=== PATIENT | female | born 1965 | race Caucasian/White ===

== ENCOUNTER 2017-04-18 13:33 | Emergency (ER) | payer BC, SELFPAY ==
[2017-04-18 14:03] LABS: Bilirubin Negative (Negative); Blood, Urine Negative (Negative); Clarity CLEAR (Clear); Glucose, Urine (Dipstick) >=1000 mg/dL (Negative); Leukocyte Negative (Negative); Nitrite Negative (Negative); Protein, Urine (Dipstick) Negative (Neg-Trace); Specific Gravity, Urine 1.028 (1.002-1.036); Urobilinogen 0.2 mg/dL (0.2-1.0); pH, Urine 5.5 (5.0-9.0)
[2017-04-18 14:03] LABS: #Basophils 0.1 thou/uL (0.0-0.2); #Eosinphils 0.2 thou/uL (0.0-0.7); #Lymphocytes 2.6 thou/uL (1.20-3.40); #Monocytes 0.6 thou/uL (0.11-0.59); #Neutrophils 7.5 thou/uL (1.40-6.50); %Basophils 0.7 % (0.0-1.0); %Eosinophils 1.9 % (0.0-10.0); %Lymphocytes 23.9 % (21.0-51.0); %Monocytes 5.7 % (0.0-10.0); %Neutrophils 67.8 % (42.0-75.0); Hemoglobin 13.1 g/dL (12.0-16.0); Mean Corpuscular HGB CONC 32.4 g/dL (32.0-36.0); Mean Corpuscular Hemoglobin 28.5 pg (27.0-31.0); Mean Corpuscular Volume 88.1 fl (81.0-99.0); Mean Platelet Volume 7.3 fL (7.4-10.4); Platelet Count 429 thou/uL (130-400)
[2017-04-18 14:21] LABS: Base Excess-Venous -0.1 mmol/L (-30.0-30.0); Bicarbonate (HCO3v) 27.3 mmol/L (1.0-85.0); CO2 Tension (PvCO2) 53.7 mmHg (41.0-51.0); Calcium, Ionized 1.04 mmol/L (1.12-1.32); Hemoglobin - Calc 16.2 g/dL (12.0-18.0); O2 Tension (PvO2) 22.3 mmHg (35.0-45.0); Potassium 3.8 mmol/L (3.4-4.7); T. Carbon Dioxide 28.9 mmol/L (1.0-85.0); pH (Venous) 7.314 (7.35-7.45); vO2 Saturation-calc 32.3 % (0.0-100.0)
[2017-04-18 14:29] LABS: ALT (SGPT) 11 U/L (8-55); AST (SGOT) 8 U/L (5-34); Albumin 4.4 g/dL (3.5-5.0); Alkaline Phosphatase 166 U/L (40-150); Anion Gap 16 mmol/L (10-20); BUN (Urea Nitrogen) 28 mg/dL (7.0-18.7); Bilirubin, Total 0.3 mg/dL (0.2-1.2); Calc. Creatinine Clearance 0 mL/min (70-130); Carbon Dioxide 26 mmol/L (22-29); Chloride 94 mmol/L (98-107); Estimated GFR-MDRD 40; Globulin 3.7 g/dL (2.4-3.5); Glucose 392 mg/dL (70-105); Potassium 3.8 mmol/L (3.5-5.1); Protein, Total 8.1 g/dL (6.0-8.3); Sodium 132 mmol/L (136-145); Troponin I Less than 0.010 ng/mL (< 0.028)
[2017-04-18] MEDS ORDERED: Insulin Regular 300 UNITS/3 ML VIAL ONE (15:01)
== END 2017-04-18 15:33 | disposition home or self-care (01) ==
LOC: ERS 13:33
DX: E10.65 Type 1 diabetes mellitus with hyperglycemia (principal); I25.10 Atherosclerotic heart disease of native coronary artery without angina pectoris; E10.40 Type 1 diabetes mellitus with diabetic neuropathy, unspecified; F32.9 Major depressive disorder, single episode, unspecified; Z79.899 Other long term (current) drug therapy; Z79.84 Long term (current) use of oral hypoglycemic drugs
CPT/HCPCS: 36415; 36416; 80053; 81003; 82010; 82330; 82553; 82803; 84484; 85025; 96372; J1815

== ENCOUNTER 2017-10-17 12:49 | Outpatient (CLI) | payer BC | END 2017-10-17 12:50 | disposition home or self-care (01) | LOC: BICMAMMO 12:49 | PROVIDERS: ATTEND Student in an Organized Health Care Education/Training Program | DX: Z12.31 Encounter for screening mammogram for malignant neoplasm of breast (principal); Z80.3 Family history of malignant neoplasm of breast | CPT/HCPCS: 77063; 77067 ==

== ENCOUNTER 2018-03-25 20:03 | Emergency (ER) | payer BC ==
--- NOTE | 2018-03-25 20:53 | RAD ---
CHEST TWO VIEWS: 03/25/2018 PROVIDED CLINICAL HISTORY: Cough and congestion. COMPARISON: 11/24/2014 FINDINGS: The cardiac and mediastinal silhouette is within normal limits. Median sternotomy changes are seen. No focal consolidation, pleural fluid, or pneumothorax apparent. IMPRESSION: No evidence for acute cardiopulmonary process. POS: YENIFER
== END 2018-03-25 21:18 | disposition home or self-care (01) ==
LOC: ERS 20:03
DX: J06.9 Acute upper respiratory infection, unspecified (principal); I25.10 Atherosclerotic heart disease of native coronary artery without angina pectoris; E10.40 Type 1 diabetes mellitus with diabetic neuropathy, unspecified; I10 Essential (primary) hypertension; F32.9 Major depressive disorder, single episode, unspecified; Z79.899 Other long term (current) drug therapy; Z79.82 Long term (current) use of aspirin; Z79.4 Long term (current) use of insulin
CPT/HCPCS: 71046

== ENCOUNTER 2018-06-07 10:06 | Emergency (ER) | payer BC ==
[2018-06-07 10:39] LABS: Bilirubin Negative (Negative); Blood, Urine Negative (Negative); Glucose, Urine (Dipstick) 500 mg/dL (Negative); Leukocyte Negative (Negative); Nitrite Negative (Negative); Protein, Urine (Dipstick) Negative (Neg-Trace); Urobilinogen 0.2 mg/dL (0.2-1.0); pH, Urine 6.5 (5.0-9.0)
[2018-06-07 10:41] LABS: Clarity Clear (Clear)
[2018-06-07 11:15] LABS: #Basophils 0.1 thou/uL (0.0-0.2); #Eosinphils 0.2 thou/uL (0.0-0.7); #Lymphocytes 1.7 thou/uL (1.20-3.40); #Monocytes 0.5 thou/uL (0.11-0.59); #Neutrophils 5.6 thou/uL (1.40-6.50); %Basophils 0.8 % (0.0-1.0); %Eosinophils 2.4 % (0.0-10.0); %Lymphocytes 20.8 % (21.0-51.0); %Monocytes 5.9 % (0.0-10.0); %Neutrophils 70.1 % (42.0-75.0); Hemoglobin 12.6 g/dL (12.0-16.0); Mean Corpuscular HGB CONC 31.7 g/dL (32.0-36.0); Mean Corpuscular Hemoglobin 28.1 pg (27.0-31.0); Mean Corpuscular Volume 88.5 fL (78.0-98.0); Mean Platelet Volume 7.7 fL (7.4-10.4); Platelet Count 338 thou/uL (130-400); RBC Distribution Width 13.5 % (11.5-14.5)
[2018-06-07 12:19] LABS: ALT (SGPT) 17 U/L (8-55); AST (SGOT) 14 U/L (5-34); Albumin 3.8 g/dL (3.5-5.0); Alkaline Phosphatase 146 U/L (40-150); Anion Gap 12 mmol/L (10-20); BUN (Urea Nitrogen) 22 mg/dL (9.8-20.1); Bilirubin, Total 0.3 mg/dL (0.2-1.2); Calc. Creatinine Clearance 0 mL/min (70-130); Calcium 9.5 mg/dL (7.8-10.44); Carbon Dioxide 28 mmol/L (22-29); Chloride 102 mmol/L (98-107); Estimated GFR-MDRD 71; Globulin 3.1 g/dL (2.4-3.5); Glucose 222 mg/dL (70-105); Potassium 4.2 mmol/L (3.5-5.1); Protein, Total 6.9 g/dL (6.0-8.3); Sodium 138 mmol/L (136-145)
== END 2018-06-07 13:07 | disposition home or self-care (01) ==
LOC: ERS 10:06
DX: E10.65 Type 1 diabetes mellitus with hyperglycemia (principal); I25.10 Atherosclerotic heart disease of native coronary artery without angina pectoris; E10.40 Type 1 diabetes mellitus with diabetic neuropathy, unspecified; I10 Essential (primary) hypertension; F32.9 Major depressive disorder, single episode, unspecified; F17.210 Nicotine dependence, cigarettes, uncomplicated
CPT/HCPCS: 36416; 80053; 81003; 82010; 85025; 93005; 96360; 96361

== ENCOUNTER 2018-11-07 08:56 | Outpatient (CLI) | payer BC ==
--- NOTE | 2018-11-07 09:37 | MMO ---
Right Breast MAMMO Unilat Diag DDI RT+BLAKE. CLINICAL HISTORY: Patient is 53 years old and is seen for additional evaluation requested from prior study. The patient has no personal history of cancer. VIEWS: The views performed were: right craniocaudal spot compression with tomosynthesis; right mediolateral oblique spot compression with tomosynthesis; and right mediolateral with tomosynthesis. FILMS COMPARED: The present examination has been compared to prior imaging studies performed at [facility] on 10/29/2018, and at [facility] on 08/15/2016, 10/17/2017 and 11/07/2018. MAMMOGRAM FINDINGS: There are scattered fibroglandular densities. There is a low density, oval mass measuring 8 millimeters with obscured margins seen in the middle central region of the right breast. This may reflect an intramammary lymph node. No sonographic correlate is evident. IMPRESSION: MASS IN THE RIGHT BREAST IS PROBABLY BENIGN. FOLLOW-UP IN 6 MONTHS IS RECOMMENDED. THE RESULTS OF THIS EXAM WERE SENT TO THE PATIENT. ACR BI-RADS Category 3 - Probably benign finding - short interval follow-up suggested. [facility] will notify the patient of the need for additional imaging services. MAMMOGRAPHY NOTE: 1. A negative mammogram report should not delay a biopsy if a dominant of clinically suspicious mass is present. 2. Approximately 10% to 15% of breast cancers are not detected by mammography. 3. Adenosis and dense breasts may obscure an underlying neoplasm. Reported by: BRADEN TORRES MD Electonically Signed: [id number]
--- NOTE | 2018-11-07 09:52 | ULT ---
LIMITED RIGHT BREAST ULTRASOUND: 11/07/2018 PROVIDED CLINICAL HISTORY: Abnormal mammogram. FINDINGS: Limited sonographic interrogation of the right breast was performed in the region of mammographic con cern. No corresponding sonographic abnormality is evident. IMPRESSION: BI-RADS category 3-Probably benign findings. Six month follow-up diagnostic right mammogram is recom mended for findings seen only by mammography. Please see that report. POS: OFF
== END 2018-11-07 08:57 | disposition home or self-care (01) ==
LOC: BICMAMMO 08:56
PROVIDERS: ATTEND Student in an Organized Health Care Education/Training Program
DX: N63.10 Unspecified lump in the right breast, unspecified quadrant (principal)
CPT/HCPCS: G0279

== ENCOUNTER 2019-12-02 22:09 | Inpatient (IN) | payer BC, OTHER ==
[2019-12-02 22:50] LABS: #Basophils 0.1 thou/uL (0.0-0.2); #Eosinphils 0.2 thou/uL (0.0-0.7); #Lymphocytes 1.7 thou/uL (1.20-3.40); #Monocytes 0.7 thou/uL (0.11-0.59); #Neutrophils 8.2 thou/uL (1.40-6.50); %Eosinophils 1.8 % (0.0-10.0); %Lymphocytes 15.7 % (21.0-51.0); %Monocytes 5.9 % (0.0-10.0); %Neutrophils 75.6 % (42.0-75.0); Hemoglobin 12.8 g/dL (12.0-16.0); Mean Corpuscular HGB CONC 31.7 g/dL (32.0-36.0); Mean Corpuscular Hemoglobin 29.2 pg (27.0-31.0); Mean Corpuscular Volume 91.9 fL (78.0-98.0); Mean Platelet Volume 8.4 fL (7.4-10.4); Platelet Count 330 thou/uL (130-400); RBC Distribution Width 12.9 % (11.5-14.5); Red Blood Cell (RBC) Count 4.37 mill/uL (4.20-5.40); White Blood Cell (WBC) Count 10.9 thou/uL (4.8-10.8)
[2019-12-02 22:55] LABS: Bilirubin Negative (Negative); Blood, Urine Negative (Negative); Clarity Clear (Clear); Glucose, Urine (Dipstick) Greater than 1000 mg/dL (Negative); Ketone, Urine 40 mg/dL (Negative); Leukocyte Negative Leu/uL (Negative); Nitrite Negative (Negative); Protein, Urine (Dipstick) Negative (Neg-Trace); Specific Gravity, Urine 1.025 (1.002-1.036); Urobilinogen Normal mg/dL (Less than 2)
[2019-12-02 23:09] LABS: ALT (SGPT) 16 U/L (8-55); AST (SGOT) 12 U/L (5-34); Albumin 4.2 g/dL (3.5-5.0); Alkaline Phosphatase 142 U/L (40-110); Anion Gap 21 mmol/L (10-20); BUN (Urea Nitrogen) 29 mg/dL (9.8-20.1); Bilirubin, Total 0.5 mg/dL (0.2-1.2); Calc. Creatinine Clearance 0 mL/min (70-130); Carbon Dioxide 16 mmol/L (22-29); Chloride 97 mmol/L (98-107); Estimated GFR-MDRD 34; Potassium 4.2 mmol/L (3.5-5.1); Protein, Total 7.2 g/dL (6.0-8.3); Sodium 130 mmol/L (136-145)
[2019-12-02 23:11] LABS: Actual Bicarbonate (HCO3v) 17 mEq/L (22-28); Analyzer IN Cardio ER; Base Excess -9.2 mEq/L (-2.0 to +3.0); Calcium, Ionized (venous) 1.17 mmol/L (1.16-1.32); Chloride (ABG LAB) 98 mmol/L (98-106); Hemoglobin (Hb) 12.2 g/dL (11.7-16.0); Potassium - ABG Lab 4.12 mmol/L (3.70-5.30); Sodium 132.3 mmol/L (133-146); pH (venous) 7.28 (7.32-7.43)
[2019-12-02 23:14] LABS: Glucose 621 mg/dL (70-105)
[2019-12-02] MEDS ORDERED: INSULIN REGULAR IN 0.9 % NACL 100 UNIT/100 ML BAG ONE (23:39)
[2019-12-03] MEDS ORDERED: Dextrose 5 %-0.45 % NaCl 1,000 ML IV PRN (01:23)
[2019-12-03] MEDS ORDERED: Sodium Chloride 0.9% 1,000 ML IV PRN ×4 (01:23)
[2019-12-03] MEDS ORDERED: NS 0.9% w/ 20 MEQ KCL 1,000 ML IV PRN ×2 (01:23)
[2019-12-03] MEDS ORDERED: Labetalol HCl 100 MG/20 ML VIAL SLOW IVP PRN (01:23)
[2019-12-03] MEDS ORDERED: Ondansetron PF 4 MG/2 ML Vial IVP PRN (01:23)
[2019-12-03] MEDS ORDERED: Acetaminophen 500 MG TAB PO PRN (01:23)
[2019-12-03] MEDS ORDERED: Electrolyte Replacement Protoc 1 EACH EACH IVPB PRN (01:23)
[2019-12-03] MEDS ORDERED: Ondansetron ODT 4 MG TAB PO PRN (01:23)
[2019-12-03 01:27] VITALS: BMI 36.5
[2019-12-03] MEDS ORDERED: HUMULIN R 100 UNITS in Sodium Chloride 0.9% 100 ML IVPB SCH (01:30)
[2019-12-03 02:00] LABS: Anion Gap 13 mmol/L (10-20); BUN (Urea Nitrogen) 25 mg/dL (9.8-20.1); Calc. Creatinine Clearance 89 mL/min (70-130); Calcium 8.3 mg/dL (7.8-10.44); Carbon Dioxide 21 mmol/L (22-29); Chloride 105 mmol/L (98-107); Estimated GFR-MDRD 49; Glucose 277 mg/dL (70-105); Potassium 3.9 mmol/L (3.5-5.1); Sodium 135 mmol/L (136-145)
[2019-12-03] MEDS ORDERED: Hydrocortisone 1% Cream 30 GM TUBE TOP SCH ×2 (02:00→09:00)
[2019-12-03] MEDS: D5 1/2 NS w/20 mEq KCL 1,000 ML IV PRN ×2 (02:18→05:57)
--- NOTE | 2019-12-03 02:30 | HP ---
PRIMARY CARE PROVIDER: Hitlon Honeycutt MD PRIMARY GRAIN OILSEED OR PASTURE GROWER: Dr. Radha Stinson. CHIEF COMPLAINT: Headache and hyperglycemia. HISTORY OF PRESENT ILLNESS: This is a 54-year-old female with a significant history of type 1 diabetes mellitus, presenting with hyperglycemia in the context of a broken insulin pump which occurred approximately 2 days prior to this evaluation. The patient states she has used an insulin pump over 19 years with the most recent one malfunctioning 48 hours prior to this evaluation. The patient attempted to use subcutaneous short-acting insulin to control her glucose that was unsuccessful after approximately 24 hours. The patient exhibited some nausea, but no emesis or diarrhea. The patient states she has had issues with diabetic ketoacidosis in the past, that has been approximately 5 years since her last episode. The patient denied any documented fever, chills, exposure history, or travel. The patient states she has no family members that have been ill, and no COVID-19 exposure. The patient states she is typically very compliant and vigilant with monitoring her glucose. In the emergency room, the patient underwent evaluation with metabolic screening showing elevated beta-hydroxybutyrate level of 3.26 and glucose of 600. Venous blood gas showed a pH of 7.28, at which point the patient was diagnosed with diabetic ketoacidosis and initiated on insulin infusion. The patient also received 2 L of normal saline per protocol and transferred to the intermediate care unit for further evaluation. PAST MEDICAL HISTORY: 1. Diabetes mellitus type 1 with history of intermittent DKA. 2. Coronary artery disease. 3. Diabetic peripheral neuropathy. 4. Hypertension. 5. Diabetic retinopathy. 6. Hypothyroidism. PAST SURGICAL HISTORY: 1. Status post coronary artery bypass grafting. 2. Status post bladder suspension. 3. Status post repair of deviated nasal septum. 4. Status post section. 5. Status post hysterectomy. 6. Status post tonsillectomy. 7. Bilateral tubal ligation. CURRENT MEDICATIONS: 1. Aspirin 325 mg p.o. daily. 2. Carvedilol 6.25 mg p.o. b.i.d. 3. Gabapentin 300 mg p.o. t.i.d. 4. Diclofenac 100 mg p.o. daily. 5. Hydrochlorothiazide 25 mg p.o. daily. 6. Metformin 1000 mg p.o. b.i.d. 7. NovoLog insulin per insulin pump. 8. Paroxetine 40 mg p.o. daily. 9. Simvastatin 40 mg p.o. at bedtime. 10. Levothyroxine 75 mcg p.o. daily. 11. Vitamin D3 4000 units p.o. daily. 12. Zyban 150 mg p.o. b.i.d. ALLERGIES: NO KNOWN DRUG ALLERGIES. FAMILY HISTORY: Positive for hypertension and diabetes mellitus. SOCIAL HISTORY: Resides in [place], [place]. Works as a retail security professional. Occasional alcohol use. Smokes up to 3 cigarettes every other day. No illicit drug use. REVIEW OF SYSTEMS: CONSTITUTIONAL: Negative for weight loss or gain, ability to conduct usual activities. SKIN: Negative for rash, itching. EYES: Negative for double vision, pain. ENT/MOUTH: Negative for nose bleeding, neck stiffness, pain, tenderness. CARDIOVASCULAR: Negative for palpitations, dyspnea on exertion, orthopnea. RESPIRATORY: Negative for shortness of breath, wheezing, cough, hemoptysis, fever or night sweats. GASTROINTESTINAL: Negative for poor appetite, abdominal pain, heartburn, nausea, vomiting, constipation, or diarrhea. GENITOURINARY: Negative for urgency, frequency, dysuria, nocturia. MUSCULOSKELETAL: Negative for pain, swelling. NEUROLOGIC/PSYCHIATRIC: Negative for anxiety, depression. ALLERGY/IMMUNOLOGIC: Negative for skin rash, bleeding tendency. Otherwise negative except as stated per HPI. PHYSICAL EXAMINATION: VITAL SIGNS: On admission, blood pressure 143/83, pulse 101, respiratory rate 18, temperature 98.3 degrees Fahrenheit, O2 saturation 98% on room air. GENERAL APPEARANCE: This is a 54-year-old female, alert and oriented x3, pleasant, responsive, in no acute distress. HEENT: Pupils are equal, round, reactive to light and accommodation. Extraocular muscles are intact. No scleral icterus. No conjunctival injection. Nares patent. OP is clear. Oral mucosa dry. NECK: Supple. No cervical adenopathy. No thyromegaly. No carotid bruits. No JVD appreciated. Cervical spine with full active and passive range of motion. No meningeal signs noted. CHEST: Lungs are clear to auscultation bilaterally. CARDIOVASCULAR: S1 and S2 without noted murmur, rub, or gallop. ABDOMEN: Obese, soft, nontender, and nondistended. Bowel sounds are positive in all 4 quadrants. There is no palpable mass. No rebound or guarding appreciated. Insulin pump noted in the right lower quadrant. EXTREMITIES: Warm and dry with fair turgor. No clubbing, cyanosis, or asymmetric edema appreciated. Pulses palpable distally at the dorsalis pedis, posterior tibial, and popliteal arteries bilaterally. Capillary refill less than 2 seconds. NEUROLOGIC: Cranial nerves II through XII are grossly intact. No focal or lateralizing signs appreciated. PERTINENT LABORATORY AND X-RAY FINDINGS: Sodium 130, potassium 4.2, chloride 97, CO2 of 16, anion gap 21, BUN 29, creatinine 1.57, estimated GFR 34, glucose 621, calcium 9.0. CBC showed a white blood cell count of 10.9, hemoglobin 12.8, hematocrit 40.2, MCV 92, platelet count 330 with 76% neutrophils. Venous blood gas dated 12/02/2019 showed a pH of 7.28. Urinalysis positive for glucose and ketones. Beta-hydroxybutyrate level 3.26. ASSESSMENT AND PLAN: 1. Diabetic ketoacidosis. The patient will be admitted to the intermediate care unit. We will continue diabetic ketoacidosis protocol with attention to IV fluid resuscitation. Continue insulin infusion and monitor Accu-Cheks q.1 hour. No current evidence to suggest focal infectious process. Repeat beta-hydroxybutyrate level in the a.m. 2. Acute kidney injury. Continue IV fluids as outlined previously. Avoid nephrotoxic agents and limit contrast exposure. Repeat creatinine in the a.m. 3. Hyponatremia. Secondarily to hyperglycemia. We will continue IV fluids with normal saline and serial sodium monitoring. 4. Hypertension. Resume home blood pressure regimen and monitor clinical response. 5. Hypothyroidism. Continue levothyroxine 75 mcg p.o. daily. 6. Prophylaxis. SCDs while in bed. Pepcid 20 mg p.o. b.i.d. CODE STATUS: Full. Surrogate medical decision maker is the patient's son. Job ID: [id number]
[2019-12-03 02:31] LABS: Hemoglobin 11.5 g/dL (12.0-16.0); Mean Corpuscular HGB CONC 32.8 g/dL (32.0-36.0); Mean Corpuscular Hemoglobin 29.1 pg (27.0-31.0); Mean Corpuscular Volume 88.8 fL (78.0-98.0); Mean Platelet Volume 8.1 fL (7.4-10.4); Platelet Count 294 thou/uL (130-400); RBC Distribution Width 12.7 % (11.5-14.5); Red Blood Cell (RBC) Count 3.94 mill/uL (4.20-5.40); White Blood Cell (WBC) Count 8.7 thou/uL (4.8-10.8)
[2019-12-03 06:29] LABS: Anion Gap 12 mmol/L (10-20); BUN (Urea Nitrogen) 20 mg/dL (9.8-20.1); Calc. Creatinine Clearance 104 mL/min (70-130); Calcium 8.3 mg/dL (7.8-10.44); Carbon Dioxide 23 mmol/L (22-29); Chloride 108 mmol/L (98-107); Estimated GFR-MDRD 59; Glucose 158 mg/dL (70-105); Potassium 4.2 mmol/L (3.5-5.1); Sodium 139 mmol/L (136-145)
[2019-12-03] MEDS ORDERED: diphenhydrAMINE 25 MG CAP PO PRN (08:52)
--- NOTE | 2019-12-03 08:53 | PDOC.HOSPP ---
- Subjective Encounter Date: 12/03/19 Encounter Time: 08:51 Subjective: Ms. Mcrae was seen today in follow-up of DKA. She does not have any complaints. - Objective Vital Signs & Weight: Vital Signs (12 hours) Temp Pulse Ox 12/03/19 07:42 97 12/03/19 07:27 97.8 F 12/03/19 04:00 98 F 12/03/19 01:10 98 12/03/19 01:00 97.8 F Weight Weight 219 lb 6 oz Most Recent Monitor Data Heart Rate from ECG 81 NIBP 139/71 NIBP BP-Mean 93 Respiration from ECG 19 SpO2 98 I&O: 12/02/19 12/03/19 12/04/19 06:59 06:59 06:59 Intake Total 1365 251.5 Output Total 1100 Balance 265 251.5 Result Diagrams: 12/03/19 01:34 12/03/19 05:54 Additional Labs: Accuchecks 12/03/19 12/03/19 12/03/19 08:07 07:09 05:59 POC Glucose 153 H 143 H 149 H 12/03/19 12/03/19 12/03/19 04:15 03:07 02:05 POC Glucose 190 H 209 H 213 H 12/03/19 12/03/19 01:06 00:03 POC Glucose 318 H 416 H - Exam Eye: PERRL, anicteric sclera Heart: RRR, no murmur, no gallops, no rubs, normal peripheral pulses Respiratory: CTAB, no wheezes, no rales, no ronchi, normal chest expansion, no tachypnea Gastrointestinal: soft, non-tender, non-distended, normal bowel sounds, no palpable masses, no hepatomegaly Extremities: no cyanosis, no clubbing, no edema (+ mild erythema on the medial aspect of the thigh, withsome small vesicular areas) Hosp A/P (1) DKA, type 1 Code(s): E10.10 - TYPE 1 DIABETES MELLITUS WITH KETOACIDOSIS WITHOUT COMA Status: Acute (2) Hypertension Code(s): I10 - ESSENTIAL (PRIMARY) HYPERTENSION Status: Chronic (3) CAD (coronary artery disease) Code(s): I25.10 - ATHSCL HEART DISEASE OF [place] CORONARY ARTERY W/O ANG PCTRS Status: Chronic (4) Hypothyroidism Code(s): E03.9 - HYPOTHYROIDISM, UNSPECIFIED Status: Chronic - Plan * DKA type 1- resolved- will transition her back to the insulin pump ( she has received a new one, and has it right now) * CAD- stable * Probable Allergic dermatitis- Benadryl and Hydrocortisone cream * HTN- will re-start her home medication * Hypothyroidism- re-start home medications * Hopefully home later today if her blood glucose is stable
[2019-12-03] MEDS ORDERED: Gabapentin 300 MG CAP PO SCH (09:00)
[2019-12-03] MEDS ORDERED: PARoxetine 20 MG TAB PO SCH (09:00)
[2019-12-03] MEDS ORDERED: Non-Formulary Item 1 EACH (Paroxetine Hcl [Paroxetine Hcl] 40 MG Tablet) PO SCH (09:00)
[2019-12-03] MEDS ORDERED: Dulaglutide [Trulicity] 1.5 MG/0.5 ML SC SCH (09:00)
[2019-12-03] MEDS ORDERED: Bupropion 150 MG SR TAB PO SCH (09:00)
[2019-12-03] MEDS ORDERED: Levothyroxine Sodium 75 MCG TAB PO SCH (09:00)
[2019-12-03] MEDS ORDERED: Aspirin 325 MG TAB PO SCH (09:00)
[2019-12-03] MEDS ORDERED: Non-Formulary Item 1 EACH (Dulaglutide [Trulicity] 1.5 MG/0.5 ML Pen.Injctr) SC SCH (09:00)
[2019-12-03] MEDS ORDERED: Famotidine 20 MG TAB PO SCH (09:00)
[2019-12-03] MEDS ORDERED: Cholecalciferol 1,000 UNITS (25 MCG) TAB PO SCH (09:00)
[2019-12-03] MEDS ORDERED: Carvedilol 6.25 MG TAB PO SCH (09:00)
[2019-12-03 15:06] LABS: SARS-CoV-2 MS2 Positive; SARS-CoV-2 N Gene Negative; SARS-CoV-2 S Gene Negative; SARS-CoV-2 by NAA Not Detected (NotDetected); SARS-CoV-2 orf1ab Negative
[2019-12-03 15:34] VITALS: TEMP 98.2
[2019-12-03] MEDS ORDERED: metFORMIN 500 MG TAB PO SCH (17:00)
[2019-12-03] MEDS ORDERED: Simvastatin 40 MG TAB PO SCH (21:00)
--- NOTE | 2019-12-04 02:25 | DIS ---
DATE OF ADMISSION: 12/02/2019 DATE OF DISCHARGE: 12/03/2019 DISCHARGE DISPOSITION: Home. DISCHARGE DIAGNOSES: 1. Diabetic ketoacidosis. 2. Hypertension. 3. Diabetic peripheral neuropathy. 4. Hypertension. 5. Diabetic retinopathy. 6. Hypothyroidism. DISCHARGE MEDICATIONS: Include 1. She is to continue her insulin pump. 2. Bupropion 150 mg extended release b.i.d. 3. Lisinopril 20 mg p.o. daily. 4. Vitamin D3 4000 units p.o. daily. 5. Trulicity 1.5 mg subcutaneously weekly. 6. Synthroid 75 mcg p.o. daily. 7. Simvastatin 40 mg p.o. at bedtime. 8. Paroxetine 40 mg p.o. daily. 9. Metformin 1000 mg p.o. b.i.d. 10. Hydrochlorothiazide 25 mg p.o. daily. 11. Gabapentin 300 mg p.o. t.i.d. 12. Diclofenac 100 mg extended release p.o. daily. 13. Carvedilol 6.25 mg p.o. twice a day. 14. Aspirin 325 mg p.o. daily. CODE STATUS: Full code. ALLERGIES: NO KNOWN DRUG ALLERGIES. HOSPITAL COURSE: Ms. Mcrae is a pleasant 54-year-old female, who presented to the emergency room after her insulin pump malfunctioned. She tried to correct her blood glucose with subcutaneous insulin, but unfortunately her blood sugar continued to rise. By the time she received a new pump, her blood sugars were already out of control in the 600 range. She was feeling ill and as a result, came to the ER for evaluation. She was found to be in diabetic ketoacidosis and was placed in the IMCU on an insulin drip as well as fluid resuscitation. She actually improved extremely quickly overnight much sooner than expected and was able to be transitioned off the insulin drip to subcutaneous insulin and was subsequently discharged home. Prior to being discharged, she had her new insulin pump in her possession. She was able to try a few hours on the insulin pump with self-correction prior to being discharged home. Job ID: [id number]
== END 2019-12-03 17:17 | disposition home or self-care (01) | DRG 919 ==
LOC: ERS 22:09 → IMCU/EMU 23:50
PROVIDERS: ADMIT Family Medicine; ATTEND Family Medicine
DX: T85.614A Breakdown (mechanical) of insulin pump, initial encounter (principal); E10.10 Type 1 diabetes mellitus with ketoacidosis without coma; N17.9 Acute kidney failure, unspecified; E87.1 Hypo-osmolality and hyponatremia; I25.10 Atherosclerotic heart disease of native coronary artery without angina pectoris; E10.42 Type 1 diabetes mellitus with diabetic polyneuropathy; I10 Essential (primary) hypertension; E10.319 Type 1 diabetes mellitus with unspecified diabetic retinopathy without macular edema; Y83.8 Other surgical procedures as the cause of abnormal reaction of the patient, or of later complication, without mention of misadventure at the time of the procedure; E03.9 Hypothyroidism, unspecified; Z95.1 Presence of aortocoronary bypass graft; Z90.710 Acquired absence of both cervix and uterus; Z98.51 Tubal ligation status; Z79.82 Long term (current) use of aspirin; Z79.4 Long term (current) use of insulin; Z79.890 Hormone replacement therapy; Z79.899 Other long term (current) drug therapy
CPT/HCPCS: 36415; 36416; 80048; 80053; 81003; 82010; 82805; 85025; 85027; 87635; 96361; 96374; J3480; U0003

== ENCOUNTER 2020-01-25 12:22 | Emergency (ER) | payer BC ==
--- NOTE | 2020-01-25 13:44 | RAD ---
EXAM: Chest one view: HISTORY: Cough with chest pressure and headache and diarrhea COMPARISON: 11/24/2014 FINDINGS: Heart size: Within normal limits. Lungs: Clear of acute process. No evidence for confluent lobar pneumonia, significant pleural effusion, acute edema, or pneumothorax , or other significant acute process. IMPRESSION: No significant acute intrathoracic disease. Stable exam.
[2020-01-25 17:01] LABS: SARS-CoV-2 MS2 Positive; SARS-CoV-2 N Gene Negative; SARS-CoV-2 S Gene Negative; SARS-CoV-2 by NAA Not Detected (NotDetected); SARS-CoV-2 orf1ab Negative
== END 2020-01-25 14:13 | disposition home or self-care (01) ==
LOC: ERS 12:22
DX: R19.7 Diarrhea, unspecified (principal); R51.9 Headache, unspecified; R11.0 Nausea; R05 Cough; Z20.828 Contact with and (suspected) exposure to other viral communicable diseases; E10.40 Type 1 diabetes mellitus with diabetic neuropathy, unspecified; E10.319 Type 1 diabetes mellitus with unspecified diabetic retinopathy without macular edema; I10 Essential (primary) hypertension; I25.10 Atherosclerotic heart disease of native coronary artery without angina pectoris; F32.9 Major depressive disorder, single episode, unspecified; Z87.891 Personal history of nicotine dependence; Z79.84 Long term (current) use of oral hypoglycemic drugs; Z79.899 Other long term (current) drug therapy; Z79.82 Long term (current) use of aspirin
CPT/HCPCS: 71045; 87635; 87804; 93005; U0003

== ENCOUNTER 2020-05-23 06:55 | Observation (INO) | payer BC, SELFPAY ==
[2020-05-23 07:32] LABS: #Basophils 0.1 thou/uL (0.0-0.2); #Eosinphils 0.3 thou/uL (0.0-0.7); #Lymphocytes 2.1 thou/uL (1.20-3.40); #Monocytes 0.7 thou/uL (0.11-0.59); #Neutrophils 10.3 thou/uL (1.40-6.50); %Basophils 0.6 % (0.0-1.0); %Eosinophils 2.2 % (0.0-10.0); %Lymphocytes 15.7 % (21.0-51.0); %Monocytes 5.3 % (0.0-10.0); %Neutrophils 76.3 % (42.0-75.0); Hemoglobin 12.5 g/dL (12.0-16.0); Mean Corpuscular HGB CONC 31.4 g/dL (32.0-36.0); Mean Corpuscular Volume 89.3 fL (78.0-98.0); Mean Platelet Volume 7.7 fL (7.4-10.4); Platelet Count 376 thou/uL (130-400); RBC Distribution Width 12.6 % (11.5-14.5); Red Blood Cell (RBC) Count 4.45 mill/uL (4.20-5.40); White Blood Cell (WBC) Count 13.5 thou/uL (4.8-10.8)
[2020-05-23 07:57] LABS: Acetaminophen Less than 6.0 mcg/mL (10.0-30.0); Alcohol Less than 10 mg/dL (Less than 10); Salicylate Less than 8.0 mg/dL (15.0-30.0)
[2020-05-23 07:58] LABS: ALT (SGPT) 16 U/L (8-55); AST (SGOT) 19 U/L (5-34); Albumin 4.2 g/dL (3.5-5.0); Alkaline Phosphatase 151 U/L (40-110); Anion Gap 18 mmol/L (10-20); BUN (Urea Nitrogen) 20 mg/dL (9.8-20.1); Bilirubin, Total 0.2 mg/dL (0.2-1.2); Calc. Creatinine Clearance 0 mL/min (70-130); Carbon Dioxide 21 mmol/L (22-29); Chloride 106 mmol/L (98-107); Globulin 2.7 g/dL (2.4-3.5); Glucose 143 mg/dL (70-105); Magnesium 1.8 mg/dL (1.6-2.6); Potassium 4.5 mmol/L (3.5-5.1); Protein, Total 6.9 g/dL (6.0-8.3); Sodium 140 mmol/L (136-145)
[2020-05-23 08:03] LABS: Actual Bicarbonate (HCO3v) 21 mEq/L (22-28); Analyzer IN Cardio ER; Base Excess -4.3 mEq/L (-2.0 to +3.0); Calcium, Ionized (venous) 1.08 mmol/L (1.16-1.32); Chloride (VBG) 106 mmol/L (98-106); Hemoglobin (Hb) 14.1 g/dL (11.7-16.0); Potassium (VBG) 4.69 mmol/L (3.70-5.30); Sodium 136.4 mmol/L (133-146); pH (venous) 7.33 (7.32-7.43)
[2020-05-23] MEDS ORDERED: cefTRIAXone\\ROCEPHIN 1 GM VIAL ONE (08:07)
[2020-05-23 08:41] LABS: Bilirubin Negative (Negative); Blood, Urine Negative (Negative); Clarity Clear (Clear); Glucose, Urine (Dipstick) 100 mg/dL (Negative); Ketone, Urine Negative (Negative); Leukocyte Negative Leu/uL (Negative); Nitrite Negative (Negative); Protein, Urine (Dipstick) Negative (Neg-Trace); Specific Gravity, Urine 1.018 (1.002-1.036); Urobilinogen Normal mg/dL (Less than 2)
[2020-05-23 09:37] LABS: Amphetamine Not Detected (NotDetected); Benzodiazepine Screen Not Detected (NotDetected); Cocaine Metabolite Screen Not Detected (NotDetected); Medtox Reader # READER 1; Methamphetamine Not Detected (NotDetected); Opiate Screen Not Detected (NotDetected); Phencyclidine (PCP) Not Detected (NotDetected); THC/Cannabinoid Screen Not Detected (NotDetected)
[2020-05-23 09:38] LABS: Barbiturates Screen Not Detected (NotDetected); Medtox Control Line Valid? VALID (VALID); Methadone Not Detected (NotDetected); Oxycodone Screen Not Detected (NotDetected); Tricyclic Screen Not Detected (NotDetected)
[2020-05-23] MEDS ORDERED: Acetaminophen 325 MG TAB PO PRN (09:54)
[2020-05-23] MEDS ORDERED: Acetaminophen 650 MG Suppository PR PRN (09:54)
[2020-05-23] MEDS ORDERED: Vancomycin HCl 1.75 GM in Sodium Chloride 0.9% 500 ML IVPB SCH (10:30)
[2020-05-23 10:52] LABS: Lactic Acid 1.9 mmol/L (0.5-2.2)
[2020-05-23 10:54] LABS: SARS-CoV-2 NAA Rapid Test Not Detected (NotDetected)
[2020-05-23] MEDS ORDERED: VANCOMYCIN 1.75 GM/350 ML BAG 1.75 GM in Premix Bag 1 BAG IVPB SCH (11:15)
[2020-05-23 11:27] LABS: Troponin I Less than 0.010 ng/mL (< 0.028)
[2020-05-23] MEDS: Cefepime 2 GM in Sodium Chloride 0.9% 100 ML IVPB SCH ×2 (12:49→23:06)
[2020-05-23] MEDS: Sodium Chloride 0.9% 1,000 ML IV SCH ×2 (12:56→20:46)
[2020-05-23 13:47] VITALS: BMI 35.2
[2020-05-23] MEDS ORDERED: Dextrose 5% in Water 1,000 ML IV PRN (14:28)
[2020-05-23] MEDS ORDERED: HumaLOG 300 UNITS/3 ML VIAL SC PRN ×2 (14:28)
[2020-05-23] MEDS ORDERED: Dextrose 50% Abboject 50 ML SYRINGE SLOW IVP PRN (14:28)
[2020-05-23] MEDS ORDERED: Insulin Regular 300 UNITS/3 ML VIAL SC SCH ×2 (14:30→16:15)
[2020-05-23 14:55] LABS: Troponin I Less than 0.010 ng/mL (< 0.028)
[2020-05-23 15:41] LABS: Anion Gap 16 mmol/L (10-20); BUN (Urea Nitrogen) 21 mg/dL (9.8-20.1); Calc. Creatinine Clearance 62 mL/min (70-130); Calcium 8.4 mg/dL (7.8-10.44); Carbon Dioxide 20 mmol/L (22-29); Chloride 100 mmol/L (98-107); Potassium 5.9 mmol/L (3.5-5.1); Sodium 130 mmol/L (136-145)
[2020-05-23 15:50] LABS: Glucose 722 mg/dL (70-105)
[2020-05-23] MEDS ORDERED: Insulin Regular 300 UNITS/3 ML VIAL SC PRN (17:39)
[2020-05-23] MEDS ORDERED: Calcium Gluconate 4.6 MEQ in Sodium Chloride 0.9% 100 ML IVPB SCH (18:00)
[2020-05-23] MEDS: Carvedilol 6.25 MG TAB PO SCH (20:46)
[2020-05-23] MEDS: Bupropion 150 MG SR TAB PO SCH (20:46)
[2020-05-23] MEDS: Gabapentin 300 MG CAP PO SCH (20:46)
[2020-05-23] MEDS ORDERED: Atorvastatin Calcium 20 MG TAB PO SCH (21:00)
[2020-05-23 21:57] LABS: Anion Gap 13 mmol/L (10-20); BUN (Urea Nitrogen) 24 mg/dL (9.8-20.1); Calc. Creatinine Clearance 72 mL/min (70-130); Calcium 8.7 mg/dL (7.8-10.44); Carbon Dioxide 23 mmol/L (22-29); Chloride 104 mmol/L (98-107); Glucose 263 mg/dL (70-105); Potassium 4.9 mmol/L (3.5-5.1); Sodium 135 mmol/L (136-145)
[2020-05-24] MEDS: Vancomycin 1.5 GRAM/300 ML BAG 1.5 GM in Premix Bag 1 BAG IVPB SCH ×2 (00:30→12:45)
[2020-05-24] MEDS: Sodium Chloride 0.9% 1,000 ML IV SCH ×2 (05:07→16:02)
[2020-05-24] MEDS ORDERED: Levothyroxine Sodium 75 MCG TAB PO SCH (06:00)
[2020-05-24 06:15] LABS: #Basophils 0.1 thou/uL (0.0-0.2); #Eosinphils 0.3 thou/uL (0.0-0.7); #Monocytes 0.6 thou/uL (0.11-0.59); #Neutrophils 5.1 thou/uL (1.40-6.50); %Basophils 0.7 % (0.0-1.0); %Lymphocytes 24.8 % (21.0-51.0); %Monocytes 6.9 % (0.0-10.0); %Neutrophils 63.6 % (42.0-75.0); Hemoglobin 10.8 g/dL (12.0-16.0); Mean Corpuscular HGB CONC 32.1 g/dL (32.0-36.0); Mean Corpuscular Hemoglobin 28.8 pg (27.0-31.0); Mean Corpuscular Volume 89.8 fL (78.0-98.0); Mean Platelet Volume 7.7 fL (7.4-10.4); Platelet Count 315 thou/uL (130-400); RBC Distribution Width 12.6 % (11.5-14.5); Red Blood Cell (RBC) Count 3.73 mill/uL (4.20-5.40)
[2020-05-24 06:37] LABS: Anion Gap 13 mmol/L (10-20); BUN (Urea Nitrogen) 19 mg/dL (9.8-20.1); Calc. Creatinine Clearance 86 mL/min (70-130); Calcium 8.4 mg/dL (7.8-10.44); Carbon Dioxide 22 mmol/L (22-29); Chloride 107 mmol/L (98-107); Glucose 132 mg/dL (70-105); Potassium 4.5 mmol/L (3.5-5.1); Sodium 137 mmol/L (136-145)
[2020-05-24 07:30] VITALS: BP 110/70; TEMP 97.9
[2020-05-24] MEDS: Bupropion 150 MG SR TAB PO SCH (08:47)
[2020-05-24] MEDS: Carvedilol 6.25 MG TAB PO SCH (08:48)
[2020-05-24] MEDS: Gabapentin 300 MG CAP PO SCH ×2 (08:48→16:02)
[2020-05-24] MEDS ORDERED: PARoxetine 20 MG TAB PO SCH (09:00)
[2020-05-24] MEDS: Insulin Regular 300 UNITS/3 ML VIAL SC PRN ×2 (12:36→16:02)
[2020-05-24] MEDS: Cefepime 2 GM in Sodium Chloride 0.9% 100 ML IVPB SCH (12:44)
== END 2020-05-24 16:34 | disposition home or self-care (01) ==
LOC: ERS 06:55 → T4-A 09:20
PROVIDERS: ADMIT Internal Medicine; ATTEND Family Medicine
DX: E10.649 Type 1 diabetes mellitus with hypoglycemia without coma (principal); G93.41 Metabolic encephalopathy; E03.9 Hypothyroidism, unspecified; I10 Essential (primary) hypertension; F17.210 Nicotine dependence, cigarettes, uncomplicated; I25.10 Atherosclerotic heart disease of native coronary artery without angina pectoris; E78.5 Hyperlipidemia, unspecified; E10.319 Type 1 diabetes mellitus with unspecified diabetic retinopathy without macular edema; E10.40 Type 1 diabetes mellitus with diabetic neuropathy, unspecified; Z79.82 Long term (current) use of aspirin; Z79.84 Long term (current) use of oral hypoglycemic drugs; Z79.899 Other long term (current) drug therapy; Z95.1 Presence of aortocoronary bypass graft; Z96.41 Presence of insulin pump (external) (internal); Z20.822 Contact with and (suspected) exposure to COVID-19
CPT/HCPCS: 0240U; 36415; 36416; 51701; 70450; 71045; 80048; 80053; 80306; 80307; 81003; 82010; 82533; 82805; 83605; 83735; 84443; 84484; 85025; 87040; 87086; 93005; 96365; 96366; 96367; 96368; 96375; 96376; G0378; J0692; J0696; J1815; J1956; J2001; J3370; J3490; J7030

== ENCOUNTER 2020-09-23 20:13 | Inpatient (IN) | payer BC ==
[2020-09-23 22:02] LABS: #Lymphocytes 0.7 thou/uL (1.20-3.40); #Monocytes 0.5 thou/uL (0.11-0.59); %Basophils 0.1 % (0.0-1.0); %Eosinophils 0.1 % (0.0-10.0); %Lymphocytes 3.8 % (21.0-51.0); %Monocytes 2.9 % (0.0-10.0); %Neutrophils 93.2 % (42.0-75.0); Mean Corpuscular HGB CONC 31.5 g/dL (32.0-36.0); Mean Corpuscular Hemoglobin 28.2 pg (27.0-31.0); Mean Corpuscular Volume 89.5 fL (78.0-98.0); Platelet Count 367 thou/uL (130-400); RBC Distribution Width 12.9 % (11.5-14.5); Red Blood Cell (RBC) Count 4.62 mill/uL (4.20-5.40); White Blood Cell (WBC) Count 17.2 thou/uL (4.8-10.8)
[2020-09-23 22:18] LABS: ALT (SGPT) 8 U/L (8-55); AST (SGOT) 14 U/L (5-34); Albumin 3.9 g/dL (3.5-5.0); Alkaline Phosphatase 132 U/L (40-110); Anion Gap 17 mmol/L (10-20); BUN (Urea Nitrogen) 29 mg/dL (9.8-20.1); Bilirubin, Total 0.3 mg/dL (0.2-1.2); CK (CPK) 47 U/L (29-168); Calc. Creatinine Clearance 0 mL/min (70-130); Calcium 9.5 mg/dL (7.8-10.44); Carbon Dioxide 25 mmol/L (22-29); Chloride 101 mmol/L (98-107); Globulin 3.1 g/dL (2.4-3.5); Glucose 306 mg/dL (70-105); Potassium 6.1 mmol/L (3.5-5.1); Sodium 137 mmol/L (136-145)
[2020-09-23 23:14] LABS: Bilirubin Negative (Negative); Blood, Urine Negative (Negative); Glucose, Urine (Dipstick) Greater than 1000 mg/dL (Negative); Ketone, Urine 10 mg/dL (Negative); Leukocyte Negative Leu/uL (Negative); Nitrite Negative (Negative); Protein, Urine (Dipstick) 10 mg/dL (Neg-Trace); Specific Gravity, Urine 1.021 (1.002-1.036); Urobilinogen Normal mg/dL (Less than 2)
[2020-09-23 23:15] LABS: Clarity Hazy (Clear)
[2020-09-24 06:51] LABS: Anion Gap 12 mmol/L (10-20); BUN (Urea Nitrogen) 28 mg/dL (9.8-20.1); Calc. Creatinine Clearance 0 mL/min (70-130); Calcium 8.9 mg/dL (7.8-10.44); Carbon Dioxide 25 mmol/L (22-29); Chloride 102 mmol/L (98-107); Glucose 289 mg/dL (70-105); Potassium 4.6 mmol/L (3.5-5.1); Sodium 134 mmol/L (136-145)
[2020-09-24] MEDS: Sodium Chloride 0.9% 1,000 ML IV SCH ×3 (08:27→23:00)
[2020-09-24 10:19] LABS: Creatinine, Urine 58.46 mg/dL (47-110); Protein, Urine Random Quant Less than 10 mg/dL (1-14); Sodium, Urine 87 mmol/L (Not Available); Urea Nitrogen, Random Urine 425 mg/dl
[2020-09-24] MEDS ORDERED: Enoxaparin Sodium 40 MG/0.4 ML SYRINGE SC SCH (11:30)
[2020-09-24] MEDS ORDERED: Dextrose 50% Abboject 50 ML SYRINGE SLOW IVP PRN (11:31)
[2020-09-24] MEDS ORDERED: Dextrose 5% in Water 1,000 ML IV PRN (11:31)
[2020-09-24] MEDS ORDERED: HumaLOG 300 UNITS/3 ML VIAL SC PRN ×2 (11:31)
[2020-09-24 12:20] LABS: Creatinine, Urine 60.31 mg/dL (47-110); Microalbumin Urine Less than 1.0 mg/dL (0.5-50.0)
[2020-09-24] MEDS ORDERED: Enoxaparin Sodium 40 MG/0.4 ML SYRINGE ONE (12:35)
[2020-09-24] MEDS: Gabapentin 300 MG CAP PO SCH ×2 (16:55→21:30)
[2020-09-24 18:45] VITALS: BMI 34.1
[2020-09-24] MEDS: Carvedilol 6.25 MG TAB PO SCH (21:30)
[2020-09-24] MEDS: Bupropion 150 MG SR TAB PO SCH (21:30)
[2020-09-25] MEDS ORDERED: Dextrose 50% Abboject 50 ML SYRINGE SLOW IVP PRN (03:43)
[2020-09-25] MEDS ORDERED: Dextrose 5% in Water 1,000 ML IV PRN (03:43)
[2020-09-25] MEDS: Levothyroxine Sodium 75 MCG TAB PO SCH (05:53)
[2020-09-25] MEDS: Sodium Chloride 0.9% 1,000 ML IV SCH ×2 (05:53→14:12)
[2020-09-25] MEDS: HumaLOG 300 UNITS/3 ML VIAL SC PRN ×4 (05:53→21:51)
[2020-09-25 08:41] LABS: #Monocytes 0.5 thou/uL (0.11-0.59); #Neutrophils 4.1 thou/uL (1.40-6.50); %Basophils 0.9 % (0.0-1.0); %Eosinophils 2.9 % (0.0-10.0); %Lymphocytes 29.6 % (21.0-51.0); %Monocytes 6.7 % (0.0-10.0); %Neutrophils 59.9 % (42.0-75.0); Hemoglobin 11.8 g/dL (12.0-16.0); Mean Corpuscular HGB CONC 31.6 g/dL (32.0-36.0); Mean Corpuscular Hemoglobin 28.5 pg (27.0-31.0); Mean Corpuscular Volume 90.2 fL (78.0-98.0); Platelet Count 306 thou/uL (130-400); RBC Distribution Width 13.2 % (11.5-14.5); Red Blood Cell (RBC) Count 4.15 mill/uL (4.20-5.40); White Blood Cell (WBC) Count 6.9 thou/uL (4.8-10.8)
[2020-09-25 08:42] LABS: #Basophils 0.1 thou/uL (0.0-0.2); #Eosinphils 0.2 thou/uL (0.0-0.7)
[2020-09-25] MEDS: Aspirin 325 MG TAB PO SCH (09:14)
[2020-09-25] MEDS: Cholecalciferol 1,000 UNITS (25 MCG) TAB PO SCH (09:15)
[2020-09-25] MEDS: Carvedilol 6.25 MG TAB PO SCH ×2 (09:15→21:49)
[2020-09-25] MEDS: Bupropion 150 MG SR TAB PO SCH ×2 (09:15→21:49)
[2020-09-25 09:16] LABS: Magnesium 1.8 mg/dL (1.6-2.6); Phosphorus 2.7 mg/dL (2.3-4.7)
[2020-09-25] MEDS: Gabapentin 300 MG CAP PO SCH ×3 (09:16→21:49)
[2020-09-25] MEDS: Enoxaparin Sodium 40 MG/0.4 ML SYRINGE SC SCH (09:17)
[2020-09-25 14:59] LABS: Hemoglobin A1c 9.1 % (4.0-6.0)
[2020-09-25 15:09] LABS: Anion Gap 13 mmol/L (10-20); BUN (Urea Nitrogen) 22 mg/dL (9.8-20.1); Calc. Creatinine Clearance 66 mL/min (70-130); Calcium 9.2 mg/dL (7.8-10.44); Carbon Dioxide 24 mmol/L (22-29); Chloride 107 mmol/L (98-107); Glucose 209 mg/dL (70-105); Potassium 4.3 mmol/L (3.5-5.1); Sodium 140 mmol/L (136-145)
[2020-09-25] MEDS ORDERED: NPH, Human Insulin Isophane 300 UNIT/3 ML VIAL SC SCH (21:00)
[2020-09-26] MEDS: Sodium Chloride 0.9% 1,000 ML IV SCH ×2 (00:48→05:25)
[2020-09-26] MEDS: Levothyroxine Sodium 75 MCG TAB PO SCH (05:25)
[2020-09-26] MEDS: HumaLOG 300 UNITS/3 ML VIAL SC PRN ×2 (05:27→11:57)
[2020-09-26] MEDS ORDERED: NPH, Human Insulin Isophane 300 UNIT/3 ML VIAL SC SCH (08:00)
[2020-09-26] MEDS: Carvedilol 6.25 MG TAB PO SCH (08:30)
[2020-09-26 08:40] LABS: Albumin 3.1 g/dL (3.5-5.0); Anion Gap 12 mmol/L (10-20); BUN (Urea Nitrogen) 16 mg/dL (9.8-20.1); BUN/Creatinine Ratio 15.09; Calc. Creatinine Clearance 89 mL/min (70-130); Calcium 8.5 mg/dL (7.8-10.44); Carbon Dioxide 19 mmol/L (22-29); Chloride 109 mmol/L (98-107); Glucose 194 mg/dL (70-105); Phosphorus 2.7 mg/dL (2.3-4.7); Potassium 4.4 mmol/L (3.5-5.1); Sodium 136 mmol/L (136-145)
[2020-09-26] MEDS: Enoxaparin Sodium 40 MG/0.4 ML SYRINGE SC SCH (08:44)
[2020-09-26] MEDS: Cholecalciferol 1,000 UNITS (25 MCG) TAB PO SCH (08:45)
[2020-09-26] MEDS: Bupropion 150 MG SR TAB PO SCH (08:45)
[2020-09-26] MEDS: Gabapentin 300 MG CAP PO SCH (08:45)
[2020-09-26] MEDS: Aspirin 325 MG TAB PO SCH (08:45)
[2020-09-26 12:04] VITALS: TEMP 98
[2020-09-26 14:11] VITALS: BP 157/86
[2020-09-26] MEDS ORDERED: metFORMIN 500 MG TAB PO SCH (17:00)
== END 2020-09-26 14:50 | disposition home or self-care (01) | DRG 682 ==
LOC: ERS 20:13 → ERHOLD 09-24 01:38 → SURG A 09-24 18:25
PROVIDERS: ADMIT Student in an Organized Health Care Education/Training Program; ATTEND Internal Medicine
DX: N17.9 Acute kidney failure, unspecified (principal); G93.41 Metabolic encephalopathy; E10.10 Type 1 diabetes mellitus with ketoacidosis without coma; E87.5 Hyperkalemia; I10 Essential (primary) hypertension; I25.10 Atherosclerotic heart disease of native coronary artery without angina pectoris; E03.9 Hypothyroidism, unspecified; F32.9 Major depressive disorder, single episode, unspecified; E78.5 Hyperlipidemia, unspecified; E86.0 Dehydration; F17.210 Nicotine dependence, cigarettes, uncomplicated; E10.649 Type 1 diabetes mellitus with hypoglycemia without coma; E10.319 Type 1 diabetes mellitus with unspecified diabetic retinopathy without macular edema; E10.40 Type 1 diabetes mellitus with diabetic neuropathy, unspecified; E86.9 Volume depletion, unspecified; T46.4X5A Adverse effect of angiotensin-converting-enzyme inhibitors, initial encounter; Z95.1 Presence of aortocoronary bypass graft; Z98.51 Tubal ligation status; Z90.710 Acquired absence of both cervix and uterus; Z90.89 Acquired absence of other organs; Z79.899 Other long term (current) drug therapy; Z79.82 Long term (current) use of aspirin; Z79.4 Long term (current) use of insulin; Z79.890 Hormone replacement therapy; Z82.49 Family history of ischemic heart disease and other diseases of the circulatory system; Z83.3 Family history of diabetes mellitus
CPT/HCPCS: 36415; 36416; 71045; 80048; 80053; 80069; 81003; 82043; 82550; 82570; 83036; 83735; 83880; 84100; 84156; 84300; 84484; 84540; 85025; 93005; J1650; J1815

== ENCOUNTER 2021-08-30 20:37 | Emergency (ER) | payer BC, SELFPAY ==
[2021-08-30 21:09] LABS: #Eosinphils 0.2 thou/uL (0.0-0.7); #Lymphocytes 1.9 thou/uL (1.20-3.40); #Monocytes 0.6 thou/uL (0.11-0.59); #Neutrophils 5.4 thou/uL (1.40-6.50); %Basophils 0.4 % (0.0-1.0); %Eosinophils 2.5 % (0.0-10.0); %Lymphocytes 23.5 % (21.0-51.0); %Monocytes 7.1 % (0.0-10.0); %Neutrophils 66.4 % (42.0-75.0); Hemoglobin 12.2 g/dL (12.0-16.0); Mean Corpuscular HGB CONC 31.5 g/dL (32.0-36.0); Mean Corpuscular Hemoglobin 28.5 pg (27.0-31.0); Mean Corpuscular Volume 90.4 fL (78.0-98.0); Mean Platelet Volume 7.6 fL (7.4-10.4); Platelet Count 338 thou/uL (130-400); RBC Distribution Width 12.9 % (11.5-14.5); Red Blood Cell (RBC) Count 4.28 mill/uL (4.20-5.40); White Blood Cell (WBC) Count 8.2 thou/uL (4.8-10.8)
[2021-08-30 21:30] LABS: ALT (SGPT) 9 U/L (8-55); AST (SGOT) 12 U/L (5-34); Alkaline Phosphatase 105 U/L (40-110); Anion Gap 15 mmol/L (10-20); BUN (Urea Nitrogen) 29 mg/dL (9.8-20.1); Bilirubin, Total 0.3 mg/dL (0.2-1.2); Calc. Creatinine Clearance 0 mL/min (70-130); Calcium 9.4 mg/dL (7.8-10.44); Carbon Dioxide 25 mmol/L (22-29); Chloride 105 mmol/L (98-107); Globulin 3.2 g/dL (2.4-3.5); Glucose 119 mg/dL (70-105); Potassium 4.6 mmol/L (3.5-5.1); Protein, Total 7.2 g/dL (6.0-8.3); Sodium 140 mmol/L (136-145)
== END 2021-08-30 21:47 | disposition home or self-care (01) ==
LOC: ERS 20:37
DX: E10.649 Type 1 diabetes mellitus with hypoglycemia without coma (principal); I25.10 Atherosclerotic heart disease of native coronary artery without angina pectoris; E10.40 Type 1 diabetes mellitus with diabetic neuropathy, unspecified; E10.319 Type 1 diabetes mellitus with unspecified diabetic retinopathy without macular edema; Z79.82 Long term (current) use of aspirin; Z79.899 Other long term (current) drug therapy; Z79.84 Long term (current) use of oral hypoglycemic drugs
CPT/HCPCS: 36415; 80053; 85025; 99283

== ENCOUNTER 2021-09-16 23:34 | Emergency (ER) | payer SELFPAY | END 2021-09-17 02:11 | disposition home or self-care (01) | LOC: ERS 23:34 | DX: E10.649 Type 1 diabetes mellitus with hypoglycemia without coma (principal); E10.40 Type 1 diabetes mellitus with diabetic neuropathy, unspecified; E10.319 Type 1 diabetes mellitus with unspecified diabetic retinopathy without macular edema; I10 Essential (primary) hypertension; I25.10 Atherosclerotic heart disease of native coronary artery without angina pectoris; Z79.82 Long term (current) use of aspirin; Z79.84 Long term (current) use of oral hypoglycemic drugs; Z79.899 Other long term (current) drug therapy | CPT/HCPCS: 36416; 99284 ==

== ENCOUNTER 2021-10-17 13:55 | Inpatient (IN) | payer SELFPAY ==
[2021-10-17] MEDS ORDERED: Iopamidol 370 76% 100 ML VIAL ONE (14:36)
[2021-10-17 14:40] LABS: #Eosinphils 0.1 thou/uL (0.0-0.7); #Lymphocytes 1.4 thou/uL (1.20-3.40); #Monocytes 0.4 thou/uL (0.11-0.59); #Neutrophils 5.6 thou/uL (1.40-6.50); %Basophils 0.3 % (0.0-1.0); %Eosinophils 1.1 % (0.0-10.0); %Lymphocytes 18.9 % (21.0-51.0); %Monocytes 5.1 % (0.0-10.0); %Neutrophils 74.7 % (42.0-75.0); Mean Corpuscular HGB CONC 32.8 g/dL (32.0-36.0); Mean Corpuscular Hemoglobin 29.1 pg (27.0-31.0); Mean Corpuscular Volume 88.5 fL (78.0-98.0); Mean Platelet Volume 8.3 fL (7.4-10.4); Platelet Count 332 thou/uL (130-400); RBC Distribution Width 12.4 % (11.5-14.5); Red Blood Cell (RBC) Count 4.48 mill/uL (4.20-5.40); White Blood Cell (WBC) Count 7.5 thou/uL (4.8-10.8)
[2021-10-17 15:04] LABS: ALT (SGPT) 8 U/L (8-55); AST (SGOT) 11 U/L (5-34); Albumin 3.9 g/dL (3.5-5.0); Alkaline Phosphatase 113 U/L (40-110); Anion Gap 17 mmol/L (10-20); BUN (Urea Nitrogen) 19 mg/dL (9.8-20.1); Bilirubin, Total 0.3 mg/dL (0.2-1.2); Calc. Creatinine Clearance 0 mL/min (70-130); Calcium 9.5 mg/dL (7.8-10.44); Carbon Dioxide 21 mmol/L (22-29); Chloride 103 mmol/L (98-107); Estimated GFR 46; Globulin 3.1 g/dL (2.4-3.5); Glucose 509 mg/dL (70-105); Potassium 4.1 mmol/L (3.5-5.1); Sodium 137 mmol/L (136-145)
[2021-10-17] MEDS ORDERED: Insulin Regular 300 UNITS/3 ML VIAL ONE (15:24)
[2021-10-17] MEDS ORDERED: HumaLOG 300 UNITS/3 ML VIAL SC PRN ×2 (17:32)
[2021-10-17] MEDS ORDERED: Nitroglycerin 0.4 MG TAB (25 Tab Bottle) SL PRN (17:32)
[2021-10-17] MEDS ORDERED: Dextrose 5% in Water 1,000 ML IV PRN (17:32)
[2021-10-17] MEDS ORDERED: Dextrose 50% Abboject 50 ML SYRINGE SLOW IVP PRN (17:32)
[2021-10-17] MEDS ORDERED: Enoxaparin Sodium 40 MG/0.4 ML SYRINGE SC SCH (17:45)
[2021-10-17] MEDS ORDERED: traZODone HCl 50 MG TAB PO PRN (17:51)
[2021-10-17] MEDS ORDERED: NPH, Human Insulin Isophane 300 UNIT/3 ML VIAL SC SCH (18:00)
[2021-10-17 18:28] LABS: Troponin I Less than 0.010 ng/mL (< 0.028)
[2021-10-17] MEDS ORDERED: Atorvastatin Calcium 20 MG TAB PO SCH (21:00)
[2021-10-17 21:05] LABS: Troponin I Less than 0.010 ng/mL (< 0.028)
[2021-10-17 21:32] LABS: SARS-CoV-2 NAA Rapid Test Not Detected (NotDetected)
[2021-10-17] MEDS: Bupropion 150 MG SR TAB PO SCH (21:51)
[2021-10-17] MEDS: Carvedilol 6.25 MG TAB PO SCH (21:53)
[2021-10-17 21:58] VITALS: BMI 32.4
[2021-10-18 05:05] LABS: Hemoglobin A1c 8.9 % (4.0-6.0)
[2021-10-18 05:13] LABS: Cardiac Risk 3.1 (Less than 4.5)
[2021-10-18 05:26] LABS: Glucose POC Confirmation 828 mg/dl (70-105)
[2021-10-18] MEDS ORDERED: Dextrose 5% in Water 1,000 ML IV PRN (05:37)
[2021-10-18] MEDS ORDERED: HumaLOG 300 UNITS/3 ML VIAL SC PRN (05:37)
[2021-10-18] MEDS ORDERED: Dextrose 50% Abboject 50 ML SYRINGE SLOW IVP PRN (05:37)
[2021-10-18 05:57] LABS: Anion Gap 17 mmol/L (10-20); BUN (Urea Nitrogen) 26 mg/dL (9.8-20.1); Calc. Creatinine Clearance 54 mL/min (70-130); Calcium 8.8 mg/dL (7.8-10.44); Carbon Dioxide 23 mmol/L (22-29); Chloride 99 mmol/L (98-107); Estimated GFR 37; Potassium 5.4 mmol/L (3.5-5.1); Sodium 134 mmol/L (136-145)
[2021-10-18 06:08] LABS: #Eosinphils 0.1 thou/uL (0.0-0.7); #Lymphocytes 1.2 thou/uL (1.20-3.40); #Monocytes 0.4 thou/uL (0.11-0.59); #Neutrophils 4.5 thou/uL (1.40-6.50); %Basophils 0.3 % (0.0-1.0); %Eosinophils 1.3 % (0.0-10.0); %Lymphocytes 18.8 % (21.0-51.0); %Monocytes 6.5 % (0.0-10.0); %Neutrophils 73.1 % (42.0-75.0); Hemoglobin 11.9 g/dL (12.0-16.0); Mean Corpuscular HGB CONC 30.9 g/dL (32.0-36.0); Mean Corpuscular Hemoglobin 28.1 pg (27.0-31.0); Mean Corpuscular Volume 90.9 fL (78.0-98.0); Mean Platelet Volume 8.5 fL (7.4-10.4); Platelet Count 264 thou/uL (130-400); RBC Distribution Width 12.6 % (11.5-14.5); Red Blood Cell (RBC) Count 4.22 mill/uL (4.20-5.40); White Blood Cell (WBC) Count 6.2 thou/uL (4.8-10.8)
[2021-10-18 06:11] LABS: Glucose 828 mg/dL (70-105)
[2021-10-18 08:21] LABS: Glucose 650 mg/dL (70-105)
[2021-10-18] MEDS ORDERED: ADENOSINE 60 MG/20 ML VIAL ONE (08:34)
[2021-10-18] MEDS ORDERED: Aspirin Chewable 81 MG TAB PO SCH (09:00)
[2021-10-18] MEDS ORDERED: Lisinopril 20 MG TAB PO SCH (09:00)
[2021-10-18] MEDS: Enoxaparin Sodium 40 MG/0.4 ML SYRINGE SC SCH (11:54)
[2021-10-18] MEDS: PARoxetine 20 MG TAB PO SCH (11:54)
[2021-10-18] MEDS: Aspirin 325 MG TAB PO SCH (11:54)
[2021-10-18] MEDS: Carvedilol 6.25 MG TAB PO SCH (11:55)
[2021-10-18] MEDS: Levothyroxine Sodium 75 MCG TAB PO SCH (11:55)
[2021-10-18] MEDS: Bupropion 150 MG SR TAB PO SCH ×2 (11:55→22:14)
[2021-10-18] MEDS ORDERED: Mag-Al 1200 mg/1200 mg/30 ML UDCUP PO PRN (14:28)
[2021-10-18] MEDS ORDERED: Sodium Chloride 0.9% 500 ML IV SCH (14:30)
[2021-10-18] MEDS ORDERED: Clopidogrel Bisulfate 300 MG TAB PO SCH (17:00)
[2021-10-18] MEDS: Sodium Chloride 0.9% 1,000 ML IV SCH ×2 (17:15→22:15)
[2021-10-18] MEDS: Carvedilol 3.125 MG TAB PO SCH (18:02)
[2021-10-18] MEDS ORDERED: Gabapentin 300 MG CAP PO SCH (21:00)
[2021-10-18] MEDS ORDERED: Atorvastatin Calcium 40 MG TAB PO SCH (21:00)
[2021-10-19 05:01] LABS: Anion Gap 14 mmol/L (10-20); BUN (Urea Nitrogen) 24 mg/dL (9.8-20.1); Calc. Creatinine Clearance 96 mL/min (70-130); Calcium 8.5 mg/dL (7.8-10.44); Carbon Dioxide 22 mmol/L (22-29); Chloride 108 mmol/L (98-107); Estimated GFR 74; Magnesium 1.6 mg/dL (1.6-2.6); Potassium 3.8 mmol/L (3.5-5.1); Sodium 140 mmol/L (136-145)
[2021-10-19 05:11] LABS: Glucose 53 mg/dL (70-105)
[2021-10-19] MEDS: Sodium Chloride 0.9% 1,000 ML IV SCH (05:16)
[2021-10-19] MEDS: Aspirin 325 MG TAB PO SCH (08:36)
[2021-10-19] MEDS: Bupropion 150 MG SR TAB PO SCH (08:36)
[2021-10-19] MEDS: PARoxetine 20 MG TAB PO SCH (08:36)
[2021-10-19] MEDS: Levothyroxine Sodium 75 MCG TAB PO SCH (08:36)
[2021-10-19] MEDS ORDERED: Clopidogrel Bisulfate 75 MG TAB PO SCH (09:00)
[2021-10-19] MEDS ORDERED: Multivit, Therapeutic 1 TAB PO SCH (09:00)
[2021-10-19] MEDS ORDERED: Electrolyte Replacement Protocol 1 EACH FS PRN (10:15)
[2021-10-19] MEDS ORDERED: Magnesium 2 GM/50 ML(in water) 2 GM in Premix Bag 1 BAG IVPB SCH (11:30)
[2021-10-19] MEDS: Carvedilol 3.125 MG TAB PO SCH (12:58)
[2021-10-19] MEDS: Enoxaparin Sodium 40 MG/0.4 ML SYRINGE SC SCH (12:59)
[2021-10-19 15:59] VITALS: BP 141/61; TEMP 98.6
== END 2021-10-19 16:15 | disposition home or self-care (01) | DRG 303 ==
LOC: ERS 13:55 → 2SW 17:16 → OBSVTOIN 10-18 17:34
PROVIDERS: ADMIT Internal Medicine; ATTEND Internal Medicine
DX: I25.709 Atherosclerosis of coronary artery bypass graft(s), unspecified, with unspecified angina pectoris (principal); N17.9 Acute kidney failure, unspecified; E87.1 Hypo-osmolality and hyponatremia; N18.30 Chronic kidney disease, stage 3 unspecified; E03.9 Hypothyroidism, unspecified; I12.9 Hypertensive chronic kidney disease with stage 1 through stage 4 chronic kidney disease, or unspecified chronic kidney disease; E78.5 Hyperlipidemia, unspecified; E86.0 Dehydration; E87.5 Hyperkalemia; E66.9 Obesity, unspecified; E10.22 Type 1 diabetes mellitus with diabetic chronic kidney disease; E10.65 Type 1 diabetes mellitus with hyperglycemia; Z20.822 Contact with and (suspected) exposure to COVID-19; E83.42 Hypomagnesemia; Z88.5 Allergy status to narcotic agent; Z79.82 Long term (current) use of aspirin; Z79.899 Other long term (current) drug therapy; Z68.32 Body mass index [BMI] 32.0-32.9, adult; Z79.84 Long term (current) use of oral hypoglycemic drugs; Z90.710 Acquired absence of both cervix and uterus; Z90.49 Acquired absence of other specified parts of digestive tract; Z98.51 Tubal ligation status; Z95.1 Presence of aortocoronary bypass graft; Z79.4 Long term (current) use of insulin
CPT/HCPCS: 36415; 36416; 71045; 71275; 78452; 80048; 80053; 80061; 82010; 82947; 83036; 83735; 83880; 84484; 85025; 85379; 93005; 93017; 93306; 94760; 96372; 96374; A9500; G0378; J0153; J1650; J1815; J3475; J7030; J7050; J7070; J7999; Q9967; U0002

== ENCOUNTER 2021-11-06 10:58 | Inpatient (IN) | payer SELFPAY ==
[2021-11-06 11:58] LABS: #Eosinphils 0.2 thou/uL (0.0-0.7); #Lymphocytes 1.2 thou/uL (1.20-3.40); #Monocytes 0.4 thou/uL (0.11-0.59); %Basophils 0.3 % (0.0-1.0); %Eosinophils 1.8 % (0.0-10.0); %Lymphocytes 13.8 % (21.0-51.0); %Neutrophils 79.1 % (42.0-75.0); Mean Corpuscular Hemoglobin 29.2 pg (27.0-31.0); Mean Corpuscular Volume 88.5 fL (78.0-98.0); Mean Platelet Volume 8.4 fL (7.4-10.4); Platelet Count 283 thou/uL (130-400); RBC Distribution Width 12.6 % (11.5-14.5); Red Blood Cell (RBC) Count 4.12 mill/uL (4.20-5.40); White Blood Cell (WBC) Count 8.8 thou/uL (4.8-10.8)
[2021-11-06 12:11] LABS: Bilirubin Negative (Negative); Blood, Urine Negative (Negative); Clarity Clear (Clear); Glucose, Urine (Dipstick) 500 mg/dL (Negative); Ketone, Urine Negative (Negative); Leukocyte Negative Leu/uL (Negative); Nitrite Negative (Negative); Protein, Urine (Dipstick) 20 mg/dL (Neg-Trace); Specific Gravity, Urine 1.014 (1.002-1.036); Urobilinogen Normal mg/dL (Less than 2)
[2021-11-06 12:14] LABS: ALT (SGPT) 13 U/L (8-55); AST (SGOT) 12 U/L (5-34); Albumin 4.2 g/dL (3.5-5.0); Alkaline Phosphatase 121 U/L (40-110); Anion Gap 21 mmol/L (10-20); BUN (Urea Nitrogen) 50 mg/dL (9.8-20.1); Bilirubin, Total 0.5 mg/dL (0.2-1.2); Calc. Creatinine Clearance 0 mL/min (70-130); Calcium 8.9 mg/dL (7.8-10.44); Carbon Dioxide 21 mmol/L (22-29); Chloride 98 mmol/L (98-107); Estimated GFR 10; Glucose 373 mg/dL (70-105); Magnesium 1.7 mg/dL (1.6-2.6); Potassium 5.8 mmol/L (3.5-5.1); Protein, Total 7.2 g/dL (6.0-8.3); Sodium 134 mmol/L (136-145)
[2021-11-06] MEDS ORDERED: Insulin Regular 300 UNITS/3 ML VIAL ONE (12:35)
[2021-11-06 14:01] LABS: Anion Gap 19 mmol/L (10-20); BUN (Urea Nitrogen) 50 mg/dL (9.8-20.1); Calc. Creatinine Clearance 0 mL/min (70-130); Calcium 8.8 mg/dL (7.8-10.44); Carbon Dioxide 19 mmol/L (22-29); Chloride 101 mmol/L (98-107); Estimated GFR 10; Glucose 125 mg/dL (70-105); Potassium 4.9 mmol/L (3.5-5.1); Sodium 134 mmol/L (136-145)
[2021-11-06] MEDS ORDERED: Acetaminophen 325 MG TAB PO PRN (14:07)
[2021-11-06] MEDS ORDERED: Acetaminophen 650 MG Suppository PR PRN (14:07)
[2021-11-06] MEDS ORDERED: Ondansetron ODT 4 MG TAB PO PRN (14:07)
[2021-11-06] MEDS ORDERED: Ondansetron PF 4 MG/2 ML Vial IVP PRN (14:07)
[2021-11-06] MEDS ORDERED: Sodium Chloride 0.9% 1,000 ML IV SCH (14:15)
[2021-11-06] MEDS ORDERED: Dextrose 5% in Water 1,000 ML IV PRN (14:39)
[2021-11-06] MEDS ORDERED: Insulin Regular 300 UNITS/3 ML VIAL SC PRN ×2 (14:39)
[2021-11-06] MEDS ORDERED: Dextrose 50% Abboject 50 ML SYRINGE SLOW IVP PRN (14:39)
[2021-11-06] MEDS: Carvedilol 3.125 MG TAB PO SCH (16:31)
[2021-11-06 18:15] LABS: Creatinine, Urine 37.08 mg/dL (47-110); Microalbumin Urine 1.4 mg/dL (0.5-50.0); Microalbumin/Creat Ratio 37.8 mg/g (Less than 30); Potassium, Urine Less than 10.0 mmol/L
[2021-11-06] MEDS: Sodium Chloride 0.9% 1,000 ML IV SCH (20:29)
[2021-11-06] MEDS: Heparin 5,000 UNITS/ML VIAL SC SCH (21:33)
[2021-11-07] MEDS: Sodium Chloride 0.9% 1,000 ML IV SCH ×4 (01:36→21:54)
[2021-11-07 04:49] LABS: #Eosinphils 0.1 thou/uL (0.0-0.7); #Lymphocytes 1.4 thou/uL (1.20-3.40); #Monocytes 0.6 thou/uL (0.11-0.59); #Neutrophils 4.9 thou/uL (1.40-6.50); %Basophils 0.2 % (0.0-1.0); %Eosinophils 2.1 % (0.0-10.0); %Lymphocytes 19.9 % (21.0-51.0); %Monocytes 7.9 % (0.0-10.0); %Neutrophils 69.9 % (42.0-75.0); Hemoglobin 11.8 g/dL (12.0-16.0); Mean Corpuscular HGB CONC 32.5 g/dL (32.0-36.0); Mean Corpuscular Volume 89.5 fL (78.0-98.0); Mean Platelet Volume 8.3 fL (7.4-10.4); Platelet Count 230 thou/uL (130-400); RBC Distribution Width 12.6 % (11.5-14.5); Red Blood Cell (RBC) Count 4.08 mill/uL (4.20-5.40); White Blood Cell (WBC) Count 6.9 thou/uL (4.8-10.8)
[2021-11-07 05:09] LABS: Anion Gap 17 mmol/L (10-20); BUN (Urea Nitrogen) 48 mg/dL (9.8-20.1); Calc. Creatinine Clearance 19 mL/min (70-130); Calcium 8.2 mg/dL (7.8-10.44); Carbon Dioxide 17 mmol/L (22-29); Chloride 107 mmol/L (98-107); Estimated GFR 10; Glucose 126 mg/dL (70-105); Potassium 5.3 mmol/L (3.5-5.1); Sodium 136 mmol/L (136-145)
[2021-11-07] MEDS: Levothyroxine Sodium 75 MCG TAB PO SCH (08:46)
[2021-11-07] MEDS: Clopidogrel Bisulfate 75 MG TAB PO SCH (08:46)
[2021-11-07] MEDS: Carvedilol 3.125 MG TAB PO SCH ×2 (08:47→17:01)
[2021-11-07] MEDS: Heparin 5,000 UNITS/ML VIAL SC SCH ×2 (08:48→21:50)
[2021-11-07] MEDS ORDERED: Aspirin 325 MG TAB PO SCH (09:00)
[2021-11-07] MEDS: Aspirin 81 mg Enteric Coated Tablet PO SCH (09:05)
[2021-11-07] MEDS: Sodium Bicarbonate Tab 325 MG TAB PO SCH ×2 (15:34→21:50)
[2021-11-07 20:49] LABS: Campy jejuni + coli by PCR Negative (Negative); STEC Shiga Toxin 1+2 Negative (Negative); Salmonella spp. by PCR Negative (Negative); Shigella spp + EIEC by PCR Negative (Negative)
[2021-11-08] MEDS ORDERED: hydrALAZINE 20 MG/ML VIAL SLOW IVP PRN (00:24)
[2021-11-08 04:38] LABS: #Eosinphils 0.2 thou/uL (0.0-0.7); #Lymphocytes 1.3 thou/uL (1.20-3.40); #Monocytes 0.7 thou/uL (0.11-0.59); #Neutrophils 4.9 thou/uL (1.40-6.50); %Basophils 0.4 % (0.0-1.0); %Lymphocytes 18.1 % (21.0-51.0); %Monocytes 9.5 % (0.0-10.0); Hemoglobin 11.5 g/dL (12.0-16.0); Mean Corpuscular HGB CONC 32.9 g/dL (32.0-36.0); Mean Corpuscular Hemoglobin 29.6 pg (27.0-31.0); Mean Corpuscular Volume 89.7 fL (78.0-98.0); Mean Platelet Volume 8.3 fL (7.4-10.4); Platelet Count 218 thou/uL (130-400); RBC Distribution Width 12.6 % (11.5-14.5); White Blood Cell (WBC) Count 7.1 thou/uL (4.8-10.8)
[2021-11-08 04:54] LABS: Anion Gap 16 mmol/L (10-20); BUN (Urea Nitrogen) 44 mg/dL (9.8-20.1); Calc. Creatinine Clearance 19 mL/min (70-130); Carbon Dioxide 16 mmol/L (22-29); Chloride 111 mmol/L (98-107); Estimated GFR 10; Potassium 4.8 mmol/L (3.5-5.1); Sodium 138 mmol/L (136-145)
[2021-11-08 04:58] LABS: Glucose Less than 7 mg/dL (70-105)
[2021-11-08] MEDS: Sodium Chloride 0.9% 1,000 ML IV SCH (07:39)
[2021-11-08] MEDS ORDERED: Sodium Bicarbonate 150 MEQ in Dextrose 5% in Water 1,000 ML IV SCH (09:00)
[2021-11-08] MEDS ORDERED: Amlodipine 5 MG TAB PO SCH (09:15)
[2021-11-08] MEDS: Aspirin 81 mg Enteric Coated Tablet PO SCH (10:21)
[2021-11-08] MEDS: Levothyroxine Sodium 75 MCG TAB PO SCH (10:21)
[2021-11-08] MEDS: Clopidogrel Bisulfate 75 MG TAB PO SCH (10:21)
[2021-11-08] MEDS: Sodium Bicarbonate Tab 325 MG TAB PO SCH ×3 (10:21→21:42)
[2021-11-08] MEDS: Heparin 5,000 UNITS/ML VIAL SC SCH ×2 (10:22→21:43)
[2021-11-08] MEDS: Carvedilol 3.125 MG TAB PO SCH ×2 (10:25→17:20)
[2021-11-08] MEDS: Sodium Bicarbonate 150 MEQ in Dextrose 5% in Water 1,000 ML IV SCH ×2 (10:33→19:41)
[2021-11-08 13:02] LABS: Creatinine, Urine 21.61 mg/dL (47-110)
[2021-11-08] MEDS ORDERED: PARoxetine 20 MG TAB PO SCH (13:45)
[2021-11-08] MEDS ORDERED: Gabapentin 300 MG CAP PO SCH (21:00)
[2021-11-08] MEDS: Gabapentin 300 MG CAP PO SCH (21:42)
[2021-11-08] MEDS: Atorvastatin Calcium 40 MG TAB PO SCH (21:42)
[2021-11-09] MEDS: Sodium Bicarbonate 150 MEQ in Dextrose 5% in Water 1,000 ML IV SCH (03:30)
[2021-11-09 04:16] LABS: #Eosinphils 0.3 thou/uL (0.0-0.7); #Lymphocytes 1.7 thou/uL (1.20-3.40); #Monocytes 0.5 thou/uL (0.11-0.59); #Neutrophils 4.2 thou/uL (1.40-6.50); %Basophils 0.5 % (0.0-1.0); %Lymphocytes 24.7 % (21.0-51.0); %Monocytes 7.8 % (0.0-10.0); Hemoglobin 11.5 g/dL (12.0-16.0); Mean Corpuscular HGB CONC 32.9 g/dL (32.0-36.0); Mean Corpuscular Hemoglobin 29.4 pg (27.0-31.0); Mean Corpuscular Volume 89.4 fL (78.0-98.0); Mean Platelet Volume 8.2 fL (7.4-10.4); Platelet Count 252 thou/uL (130-400); RBC Distribution Width 12.7 % (11.5-14.5); Red Blood Cell (RBC) Count 3.89 mill/uL (4.20-5.40); White Blood Cell (WBC) Count 6.8 thou/uL (4.8-10.8)
[2021-11-09 04:40] LABS: Anion Gap 18 mmol/L (10-20); BUN (Urea Nitrogen) 40 mg/dL (9.8-20.1); Calc. Creatinine Clearance 22 mL/min (70-130); Calcium 8.5 mg/dL (7.8-10.44); Carbon Dioxide 27 mmol/L (22-29); Chloride 100 mmol/L (98-107); Estimated GFR 12; Glucose 235 mg/dL (70-105); Sodium 140 mmol/L (136-145)
[2021-11-09] MEDS: Levothyroxine Sodium 75 MCG TAB PO SCH (06:00)
[2021-11-09] MEDS ORDERED: Sodium Bicarbonate 75 MEQ in Sodium Chloride 0.45% 1,000 ML IV SCH (09:00)
[2021-11-09] MEDS: Sodium Bicarbonate Tab 325 MG TAB PO SCH ×3 (10:18→21:14)
[2021-11-09] MEDS: PARoxetine 20 MG TAB PO SCH (10:19)
[2021-11-09] MEDS: Clopidogrel Bisulfate 75 MG TAB PO SCH ×2 (10:19→10:20)
[2021-11-09] MEDS: Aspirin 81 mg Enteric Coated Tablet PO SCH (10:20)
[2021-11-09] MEDS: Carvedilol 3.125 MG TAB PO SCH ×2 (10:25→17:47)
[2021-11-09] MEDS: Heparin 5,000 UNITS/ML VIAL SC SCH ×2 (10:25→21:15)
[2021-11-09] MEDS ORDERED: Amlodipine 5 MG TAB PO SCH (12:15)
[2021-11-09 17:08] LABS: Glucose 606 mg/dL (70-105)
[2021-11-09] MEDS: Gabapentin 300 MG CAP PO SCH (21:15)
[2021-11-09] MEDS: Atorvastatin Calcium 40 MG TAB PO SCH (21:15)
[2021-11-10 04:45] LABS: #Eosinphils 0.2 thou/uL (0.0-0.7); #Lymphocytes 1.6 thou/uL (1.20-3.40); #Monocytes 0.5 thou/uL (0.11-0.59); #Neutrophils 3.8 thou/uL (1.40-6.50); %Basophils 0.3 % (0.0-1.0); %Eosinophils 3.8 % (0.0-10.0); %Lymphocytes 26.5 % (21.0-51.0); %Monocytes 8.1 % (0.0-10.0); %Neutrophils 61.3 % (42.0-75.0); Hemoglobin 11.4 g/dL (12.0-16.0); Mean Corpuscular HGB CONC 32.6 g/dL (32.0-36.0); Mean Corpuscular Hemoglobin 28.9 pg (27.0-31.0); Mean Corpuscular Volume 88.8 fL (78.0-98.0); Mean Platelet Volume 8.4 fL (7.4-10.4); Platelet Count 228 thou/uL (130-400); RBC Distribution Width 12.5 % (11.5-14.5); Red Blood Cell (RBC) Count 3.95 mill/uL (4.20-5.40); White Blood Cell (WBC) Count 6.2 thou/uL (4.8-10.8)
[2021-11-10 05:07] LABS: Anion Gap 15 mmol/L (10-20); BUN (Urea Nitrogen) 35 mg/dL (9.8-20.1); Calc. Creatinine Clearance 27 mL/min (70-130); Calcium 8.9 mg/dL (7.8-10.44); Carbon Dioxide 29 mmol/L (22-29); Chloride 97 mmol/L (98-107); Estimated GFR 15; Glucose 368 mg/dL (70-105); Potassium 4.1 mmol/L (3.5-5.1); Sodium 137 mmol/L (136-145)
[2021-11-10] MEDS: Levothyroxine Sodium 75 MCG TAB PO SCH (06:20)
[2021-11-10] MEDS ORDERED: Dextrose 50% Abboject 50 ML SYRINGE SLOW IVP PRN (07:50)
[2021-11-10] MEDS ORDERED: Dextrose 5% in Water 1,000 ML IV PRN (07:50)
[2021-11-10] MEDS: Sodium Chloride 0.9% 1,000 ML IV SCH ×3 (08:39→23:45)
[2021-11-10] MEDS ORDERED: Amlodipine 5 MG TAB PO SCH ×2 (09:00)
[2021-11-10] MEDS: Heparin 5,000 UNITS/ML VIAL SC SCH ×2 (10:03→21:24)
[2021-11-10] MEDS: Carvedilol 3.125 MG TAB PO SCH ×2 (10:04→16:47)
[2021-11-10] MEDS: Aspirin 81 mg Enteric Coated Tablet PO SCH (10:04)
[2021-11-10] MEDS: Amlodipine 10 MG TAB PO SCH (10:05)
[2021-11-10] MEDS: Sodium Bicarbonate Tab 325 MG TAB PO SCH ×3 (10:05→21:22)
[2021-11-10] MEDS: PARoxetine 20 MG TAB PO SCH (10:06)
[2021-11-10] MEDS: HumaLOG 300 UNITS/3 ML VIAL SC PRN ×2 (12:02→16:47)
[2021-11-10] MEDS: Atorvastatin Calcium 40 MG TAB PO SCH (21:22)
[2021-11-10] MEDS: Gabapentin 300 MG CAP PO SCH (21:23)
[2021-11-11 04:37] LABS: #Eosinphils 0.4 thou/uL (0.0-0.7); #Lymphocytes 2.2 thou/uL (1.20-3.40); #Monocytes 0.5 thou/uL (0.11-0.59); #Neutrophils 4.2 thou/uL (1.40-6.50); %Basophils 0.6 % (0.0-1.0); %Eosinophils 5.1 % (0.0-10.0); %Lymphocytes 30.2 % (21.0-51.0); %Monocytes 6.1 % (0.0-10.0); Hemoglobin 11.3 g/dL (12.0-16.0); Mean Corpuscular HGB CONC 32.3 g/dL (32.0-36.0); Mean Corpuscular Volume 89.9 fL (78.0-98.0); Mean Platelet Volume 8.3 fL (7.4-10.4); Platelet Count 259 thou/uL (130-400); RBC Distribution Width 12.2 % (11.5-14.5); Red Blood Cell (RBC) Count 3.89 mill/uL (4.20-5.40); White Blood Cell (WBC) Count 7.3 thou/uL (4.8-10.8)
[2021-11-11 04:44] LABS: Hemoglobin A1c 9.5 % (4.0-6.0)
[2021-11-11 04:54] LABS: Anion Gap 15 mmol/L (10-20); BUN (Urea Nitrogen) 31 mg/dL (9.8-20.1); Calc. Creatinine Clearance 35 mL/min (70-130); Calcium 8.8 mg/dL (7.8-10.44); Carbon Dioxide 26 mmol/L (22-29); Chloride 104 mmol/L (98-107); Estimated GFR 21; Glucose 123 mg/dL (70-105); Magnesium 1.6 mg/dL (1.6-2.6); Potassium 4.6 mmol/L (3.5-5.1); Sodium 140 mmol/L (136-145)
[2021-11-11] MEDS: Levothyroxine Sodium 75 MCG TAB PO SCH (05:16)
[2021-11-11] MEDS ORDERED: Magnesium 2 GM/50 ML(in water) 2 GM in Premix Bag 1 BAG IVPB SCH (06:30)
[2021-11-11] MEDS: Carvedilol 3.125 MG TAB PO SCH ×2 (08:23→17:29)
[2021-11-11] MEDS: Clopidogrel Bisulfate 75 MG TAB PO SCH (08:23)
[2021-11-11] MEDS: Sodium Bicarbonate Tab 325 MG TAB PO SCH ×3 (08:23→20:30)
[2021-11-11] MEDS: PARoxetine 20 MG TAB PO SCH (08:24)
[2021-11-11] MEDS: Amlodipine 10 MG TAB PO SCH (08:25)
[2021-11-11] MEDS: Aspirin 81 mg Enteric Coated Tablet PO SCH (08:25)
[2021-11-11] MEDS: Sodium Chloride 0.9% 1,000 ML IV SCH ×2 (08:27→17:28)
[2021-11-11] MEDS: Heparin 5,000 UNITS/ML VIAL SC SCH ×2 (08:27→20:31)
[2021-11-11] MEDS: HumaLOG 300 UNITS/3 ML VIAL SC PRN ×3 (11:49→20:46)
[2021-11-11] MEDS: Gabapentin 300 MG CAP PO SCH (20:30)
[2021-11-11] MEDS: Atorvastatin Calcium 40 MG TAB PO SCH (20:30)
[2021-11-12] MEDS: Sodium Chloride 0.9% 1,000 ML IV SCH ×2 (01:55→10:25)
[2021-11-12 04:51] LABS: Anion Gap 14 mmol/L (10-20); BUN (Urea Nitrogen) 28 mg/dL (9.8-20.1); Calc. Creatinine Clearance 52 mL/min (70-130); Carbon Dioxide 23 mmol/L (22-29); Chloride 108 mmol/L (98-107); Potassium 4.1 mmol/L (3.5-5.1); Sodium 141 mmol/L (136-145)
[2021-11-12 04:52] LABS: Estimated GFR 34; Glucose 141 mg/dL (70-105); Magnesium 1.8 mg/dL (1.6-2.6)
[2021-11-12] MEDS: Levothyroxine Sodium 75 MCG TAB PO SCH (05:51)
[2021-11-12] MEDS: Clopidogrel Bisulfate 75 MG TAB PO SCH (09:15)
[2021-11-12] MEDS: Heparin 5,000 UNITS/ML VIAL SC SCH ×2 (09:15→21:10)
[2021-11-12] MEDS: Carvedilol 3.125 MG TAB PO SCH ×2 (09:15→17:25)
[2021-11-12] MEDS: Aspirin 81 mg Enteric Coated Tablet PO SCH (09:15)
[2021-11-12] MEDS: Amlodipine 10 MG TAB PO SCH (09:15)
[2021-11-12] MEDS: Sodium Bicarbonate Tab 325 MG TAB PO SCH ×3 (09:16→21:10)
[2021-11-12] MEDS: PARoxetine 20 MG TAB PO SCH (09:16)
[2021-11-12 09:27] VITALS: BMI 33.0
[2021-11-12] MEDS ORDERED: Senokot 8.6 MG TAB PO PRN (14:01)
[2021-11-12] MEDS ORDERED: Bisacodyl 5 MG TAB PO PRN (14:01)
[2021-11-12] MEDS ORDERED: Polyethylene Glycol 3350 17 GM Packet PO SCH (14:30)
[2021-11-12] MEDS: HumaLOG 300 UNITS/3 ML VIAL SC PRN ×2 (17:26→21:10)
[2021-11-12] MEDS: Atorvastatin Calcium 40 MG TAB PO SCH (21:11)
[2021-11-12] MEDS: Gabapentin 300 MG CAP PO SCH (21:11)
[2021-11-13 04:10] LABS: Anion Gap 12 mmol/L (10-20); BUN (Urea Nitrogen) 26 mg/dL (9.8-20.1); Calc. Creatinine Clearance 53 mL/min (70-130); Carbon Dioxide 27 mmol/L (22-29); Chloride 105 mmol/L (98-107); Estimated GFR 35; Glucose 114 mg/dL (70-105); Magnesium 1.7 mg/dL (1.6-2.6); Potassium 4.3 mmol/L (3.5-5.1); Sodium 140 mmol/L (136-145)
[2021-11-13] MEDS: Levothyroxine Sodium 75 MCG TAB PO SCH (05:30)
[2021-11-13] MEDS ORDERED: Carvedilol 6.25 MG TAB PO SCH (09:00)
[2021-11-13] MEDS ORDERED: Carvedilol 3.125 MG TAB PO SCH (09:11)
[2021-11-13] MEDS ORDERED: NIFEdipine XL 60 MG TAB PO SCH (09:15)
[2021-11-13] MEDS: Aspirin 81 mg Enteric Coated Tablet PO SCH (09:38)
[2021-11-13] MEDS: Clopidogrel Bisulfate 75 MG TAB PO SCH (09:39)
[2021-11-13] MEDS: PARoxetine 20 MG TAB PO SCH (09:40)
[2021-11-13] MEDS: Sodium Bicarbonate Tab 325 MG TAB PO SCH ×3 (09:40→20:36)
[2021-11-13] MEDS: Heparin 5,000 UNITS/ML VIAL SC SCH ×2 (09:40→20:36)
[2021-11-13] MEDS: Polyethylene Glycol 3350 17 GM Packet PO SCH (09:40)
[2021-11-13] MEDS: Sodium Chloride 0.9% 1,000 ML IV SCH ×3 (09:55→20:38)
[2021-11-13] MEDS ORDERED: Magnesium 2 GM/50 ML(in water) 2 GM in Premix Bag 1 BAG IVPB SCH (11:00)
[2021-11-13] MEDS: HumaLOG 300 UNITS/3 ML VIAL SC PRN ×2 (11:01→20:36)
[2021-11-13] MEDS: Carvedilol 3.125 MG TAB PO SCH (14:05)
[2021-11-13] MEDS: Amlodipine 10 MG TAB PO SCH (14:08)
[2021-11-13 17:12] LABS: Anion Gap 14 mmol/L (10-20); BUN (Urea Nitrogen) 25 mg/dL (9.8-20.1); Calc. Creatinine Clearance 55 mL/min (70-130); Calcium 8.7 mg/dL (7.8-10.44); Carbon Dioxide 21 mmol/L (22-29); Chloride 106 mmol/L (98-107); Estimated GFR 37; Glucose 155 mg/dL (70-105); Potassium 4.3 mmol/L (3.5-5.1); Sodium 137 mmol/L (136-145)
[2021-11-13] MEDS ORDERED: Sodium Chloride 0.9% 1,000 ML IV SCH ×2 (17:15)
[2021-11-13] MEDS: Gabapentin 300 MG CAP PO SCH (20:35)
[2021-11-13] MEDS: Atorvastatin Calcium 40 MG TAB PO SCH (20:36)
[2021-11-14] MEDS: Sodium Chloride 0.9% 1,000 ML IV SCH ×3 (03:00→12:24)
[2021-11-14 05:01] LABS: Anion Gap 12 mmol/L (10-20); BUN (Urea Nitrogen) 22 mg/dL (9.8-20.1); Calc. Creatinine Clearance 60 mL/min (70-130); Carbon Dioxide 23 mmol/L (22-29); Chloride 109 mmol/L (98-107); Estimated GFR 41; Glucose 208 mg/dL (70-105); Potassium 4.2 mmol/L (3.5-5.1); Sodium 140 mmol/L (136-145)
[2021-11-14] MEDS: Levothyroxine Sodium 75 MCG TAB PO SCH (05:09)
[2021-11-14] MEDS ORDERED: Carvedilol 3.125 MG TAB PO SCH ×2 (09:00→17:00)
[2021-11-14] MEDS ORDERED: NIFEdipine XL 60 MG TAB PO SCH (09:00)
[2021-11-14] MEDS: Aspirin 81 mg Enteric Coated Tablet PO SCH (09:57)
[2021-11-14] MEDS: Clopidogrel Bisulfate 75 MG TAB PO SCH (09:58)
[2021-11-14] MEDS: Heparin 5,000 UNITS/ML VIAL SC SCH (09:58)
[2021-11-14] MEDS: Polyethylene Glycol 3350 17 GM Packet PO SCH (09:59)
[2021-11-14] MEDS: PARoxetine 20 MG TAB PO SCH (09:59)
[2021-11-14] MEDS: Sodium Bicarbonate Tab 325 MG TAB PO SCH ×2 (10:00→15:13)
[2021-11-14] MEDS: HumaLOG 300 UNITS/3 ML VIAL SC PRN (12:46)
[2021-11-14 15:17] VITALS: BP 111/64; TEMP 97.4
== END 2021-11-14 15:11 | disposition home or self-care (01) | DRG 638 ==
LOC: ERS 10:58 → 2NO 13:09
PROVIDERS: ADMIT Internal Medicine; ATTEND Internal Medicine
DX: E10.65 Type 1 diabetes mellitus with hyperglycemia (principal); E87.2 Acidosis; N17.9 Acute kidney failure, unspecified; Z20.822 Contact with and (suspected) exposure to COVID-19; E86.0 Dehydration; I10 Essential (primary) hypertension; E03.9 Hypothyroidism, unspecified; I25.10 Atherosclerotic heart disease of native coronary artery without angina pectoris; Z96.41 Presence of insulin pump (external) (internal); E86.9 Volume depletion, unspecified; T46.4X5A Adverse effect of angiotensin-converting-enzyme inhibitors, initial encounter; E87.5 Hyperkalemia; E10.319 Type 1 diabetes mellitus with unspecified diabetic retinopathy without macular edema; N18.9 Chronic kidney disease, unspecified; I12.9 Hypertensive chronic kidney disease with stage 1 through stage 4 chronic kidney disease, or unspecified chronic kidney disease; E10.22 Type 1 diabetes mellitus with diabetic chronic kidney disease; D63.1 Anemia in chronic kidney disease; K52.9 Noninfective gastroenteritis and colitis, unspecified; E10.649 Type 1 diabetes mellitus with hypoglycemia without coma; Z95.1 Presence of aortocoronary bypass graft; Z79.4 Long term (current) use of insulin; Z88.5 Allergy status to narcotic agent; Z79.899 Other long term (current) drug therapy; Z79.890 Hormone replacement therapy; Z79.82 Long term (current) use of aspirin; Z98.890 Other specified postprocedural states; Z83.3 Family history of diabetes mellitus; Z82.49 Family history of ischemic heart disease and other diseases of the circulatory system
CPT/HCPCS: 36415; 36416; 76770; 80048; 80053; 81003; 82010; 82043; 82550; 82570; 83036; 83735; 83880; 84133; 84300; 84443; 84484; 85025; 87324; 87449; 87505; 93005; 96361; 96374; J0360; J1644; J1815; J3475; J7050; J7070; J7999; U0003; U0005

== ENCOUNTER 2022-01-24 08:20 | Emergency (ER) | payer SELFPAY ==
[2022-01-24 09:45] LABS: #Basophils 0.1 thou/uL (0.0-0.2); #Eosinphils 0.2 thou/uL (0.0-0.7); #Lymphocytes 1.3 thou/uL (1.20-3.40); #Monocytes 0.5 thou/uL (0.11-0.59); #Neutrophils 8.2 thou/uL (1.40-6.50); %Basophils 0.7 % (0.0-1.0); %Eosinophils 1.5 % (0.0-10.0); %Lymphocytes 12.7 % (21.0-51.0); %Monocytes 5.2 % (0.0-10.0); %Neutrophils 79.9 % (42.0-75.0); Hemoglobin 13.6 g/dL (12.0-16.0); Mean Corpuscular HGB CONC 31.1 g/dL (32.0-36.0); Mean Corpuscular Volume 90.1 fl (78.0-98.0); Mean Platelet Volume 7.7 fL (7.4-10.4); Platelet Count 347 10x3/uL (130-400); RBC Distribution Width 12.7 % (11.5-14.5); Red Blood Cell (RBC) Count 4.86 mill/uL (4.20-5.40); White Blood Cell (WBC) Count 10.2 10x3/uL (4.8-10.8)
[2022-01-24 09:57] LABS: ALT (SGPT) 16 U/L (8-55); AST (SGOT) 16 U/L (5-34); Albumin 4.3 g/dL (3.5-5.0); Alkaline Phosphatase 115 U/L (40-110); Anion Gap 16 mmol/L (10-20); BUN (Urea Nitrogen) 28 mg/dL (9.8-20.1); Bilirubin, Total 0.3 mg/dL (0.2-1.2); Calc. Creatinine Clearance 0 mL/min (70-130); Carbon Dioxide 23 mmol/L (22-29); Chloride 103 mmol/L (98-107); Estimated GFR 59; Globulin 3.2 g/dL (2.4-3.5); Glucose 141 mg/dL (70-105); Potassium 4.2 mmol/L (3.5-5.1); Protein, Total 7.5 g/dL (6.0-8.3); Sodium 138 mmol/L (136-145)
== END 2022-01-24 13:09 | disposition home or self-care (01) ==
LOC: ERS 08:20
DX: E10.649 Type 1 diabetes mellitus with hypoglycemia without coma (principal); I10 Essential (primary) hypertension; Z79.84 Long term (current) use of oral hypoglycemic drugs; Z79.4 Long term (current) use of insulin; Z79.82 Long term (current) use of aspirin; Z79.899 Other long term (current) drug therapy
CPT/HCPCS: 36415; 36416; 71045; 80053; 84484; 85025; 93005